=== PATIENT | female | born 1935 | race Caucasian/White ===

== ENCOUNTER 2016-10-30 21:13 | Emergency (ER) | payer MEDICARE, OTHER ==
[2016-10-30 21:47] VITALS: TEMP 98.3
[2016-10-30] MEDS ORDERED: LABETALOL SYRINGE 5 MG/ML IVP STA (21:58)
[2016-10-30] MEDS ORDERED: SODIUM CHLORIDE 0.9% 1,000 ML IV STA (21:58)
--- NOTE | 2016-10-30 21:58 | ED ---
General Adult HPI - General Chief complaint: Headache Stated complaint: Headache - BP Check Time Seen by Provider: 10/30/16 21:48 Source: patient, family, RN notes reviewed, old records reviewed Mode of arrival: wheelchair Limitations: no limitations - History of Present Illness Initial comments: This is an 78-year-old female ER for evaluation. This patient presents to ER for evaluation of headache and elevated blood pressure. Patient was recently placed on Xarelto for PE and she was in the hospital about a month ago. Prolonged hospitalization, patient did have a fall 2 days ago she hit her head. Patient is taking all medications as prescribed, does take pain medication at night for back pain. Patient does have history of lung cancer - Related Data Home Medications Medication Instructions Recorded Confirmed DULoxetine HCL [Cymbalta] 30 mg PO AC-SUPPER 06/19/16 10/30/16 HYDROcodone/APAP 10-325MG [[place] 1 tab PO QID PRN 06/19/16 10/30/16 10-325] Letrozole 2.5 mg PO AC-SUPPER 06/19/16 10/30/16 Levothyroxine Sodium [Synthroid] 75 mcg PO AC-BRKFST 06/19/16 10/30/16 Losartan [Cozaar] 25 mg PO PC-BRKFST 06/19/16 10/30/16 Potassium Chloride [K-Tab ER] 10 meq PO PC-BRKFST 06/19/16 10/30/16 Rivaroxaban [Xarelto] 15 mg PO DAILY 10/30/16 10/30/16 Previous Rx's Medication Instructions Recorded Polyethylene Glycol 3350 [Miralax] 17 gm PO DAILY powd.pack 08/29/16 Allergies Allergy/AdvReac Type Severity Reaction Status Date / Time No Known Allergies Allergy Verified 10/30/16 22:56 Review of Systems ROS Statement: Those systems with pertinent positive or pertinent negative responses have been documented in the HPI. ROS Other: All systems not noted in ROS Statement are negative. Past Medical History Past Medical History: Cancer, Hypertension, Thyroid Disorder Additional Past Medical History / Comment(s): breast cancer with mets to bone. radiation done 3mths ago. pt refused chemo History of Any Multi-Drug Resistant Organisms: None Reported Past Surgical History: Hysterectomy, Orthopedic Surgery Additional Past Surgical History / Comment(s): Pins in L hip secondary to fracture Past Anesthesia/Blood Transfusion Reactions: No Reported Reaction Past Psychological History: No Psychological Hx Reported Smoking Status: Never smoker Past Alcohol Use History: None Reported Past Drug Use History: None Reported - Past Family History Father Family Medical History: No Reported History Mother Family Medical History: CVA/TIA Brother(s) Family Medical History: Coronary Artery Disease (CAD) Sister(s) Family Medical History: CVA/TIA Daughter(s) Family Medical History: No Reported History Son(s) Family Medical History: No Reported History General Exam Limitations: no limitations General appearance: alert, in no apparent distress, anxious Head exam: Present: atraumatic, normocephalic, normal inspection Eye exam: Present: normal appearance, PERRL, EOMI. Absent: scleral icterus, conjunctival injection, periorbital swelling ENT exam: Present: normal exam, mucous membranes moist Neck exam: Present: normal inspection. Absent: tenderness, meningismus, lymphadenopathy Respiratory exam: Present: normal lung sounds bilaterally. Absent: respiratory distress, wheezes, rales, rhonchi, stridor Cardiovascular Exam: Present: normal rhythm, tachycardia, normal heart sounds. Absent: systolic murmur, diastolic murmur, rubs, gallop, clicks GI/Abdominal exam: Present: soft, normal bowel sounds. Absent: distended, tenderness, guarding, rebound, rigid Extremities exam: Present: normal inspection, full ROM, normal capillary refill. Absent: tenderness, pedal edema, joint swelling, calf tenderness Back exam: Present: normal inspection Neurological exam: Present: alert, oriented X3, CN II-XII intact Psychiatric exam: Present: normal affect, normal mood Skin exam: Present: warm, dry, intact, normal color. Absent: rash Course Vital Signs 10/30/16 10/30/16 21:44 22:36 Temperature 98.3 F Pulse Rate 118 H 98 Respiratory 22 20 Rate Blood Pressure 205/96 205/98 O2 Sat by Pulse 98 100 Oximetry - Reevaluation(s) Reevaluation #1: 10/30/16 22:41 Patient does show improvement in blood pressure and pain control Reevaluation #2: 10/30/16 23:44 Patient's blood pressures improving, no acute distress EKG Findings - EKG Comments: EKG Findings:: EKG shows sinus tachycardia rate 101, DE 182, QRS 66, QTC 435 Medical Decision Making - Medical Decision Making A 1 female ER with headache and elevated blood pressure, blood pressures control medication emergency room, CT is negative and patient can be discharged home, no neurological deficit able to ambulate without it - Lab Data Result diagrams: 10/30/16 22:07 10/30/16 22:07 Lab Results 10/30/16 10/30/16 10/30/16 Range/Units 22:07 22:07 22:07 WBC 5.0 (3.8-10.6) k/uL RBC 3.41 L (3.80-5.40) m/uL Hgb 11.9 (11.4-16.0) gm/dL Hct 37.5 (34.0-46.0) % MCV 109.8 H (80.0-100.0) fL MCH 35.0 (25.0-35.0) pg MCHC 31.8 (31.0-37.0) g/dL RDW 13.8 (11.5-15.5) % Plt Count 312 (150-450) k/uL Neutrophils % 64 % Lymphocytes % 24 % Monocytes % 7 % Eosinophils % 3 % Basophils % 0 % Neutrophils # 3.2 (1.3-7.7) k/uL Lymphocytes # 1.2 (1.0-4.8) k/uL Monocytes # 0.3 (0-1.0) k/uL Eosinophils # 0.1 (0-0.7) k/uL Basophils # 0.0 (0-0.2) k/uL Large Platelets Present Polychromasia Present Macrocytosis Marked PT (9.0-12.0) sec INR (<1.1) APTT (22.0-30.0) sec Sodium 134 L (137-145) mmol/L Potassium 4.6 (3.5-5.1) mmol/L Chloride 102 (98-107) mmol/L Carbon Dioxide 22 (22-30) mmol/L Anion Gap 10 mmol/L BUN 15 (7-17) mg/dL Creatinine 1.14 H (0.52-1.04) mg/dL Est GFR (MDRD) Af Amer 55 (>60 ml/min/1.73 sqM) Est GFR (MDRD) Non-Af 46 (>60 ml/min/1.73 sqM) Glucose 111 H (74-99) mg/dL Calcium 9.3 (8.4-10.2) mg/dL Phosphorus 4.1 (2.5-4.5) mg/dL Magnesium 2.1 (1.6-2.3) mg/dL Total Bilirubin 0.7 (0.2-1.3) mg/dL AST 91 H (14-36) U/L ALT 62 H (9-52) U/L Alkaline Phosphatase 131 H (38-126) U/L Total Creatine Kinase 75 (30-135) U/L CK-MB (CK-2) 0.9 (0.0-2.4) ng/mL CK-MB (CK-2) Rel Index 1.2 Troponin I <0.012 (0.000-0.034) ng/mL Total Protein 6.4 (6.3-8.2) g/dL Albumin 3.7 (3.5-5.0) g/dL TSH 2.790 (0.465-4.680) mIU/L Urine Color Urine Appearance (Clear) Urine pH (5.0-8.0) Ur Specific [place] (1.001-1.035) Urine Protein (Negative) Urine Glucose (UA) (Negative) Urine Ketones (Negative) Urine Blood (Negative) Urine Nitrate (Negative) Urine Bilirubin (Negative) Urine Urobilinogen (<2.0) mg/dL Ur Leukocyte Esterase (Negative) Urine WBC (0-5) /hpf Hyaline Casts (0-2) /lpf 10/30/16 10/30/16 Range/Units 22:07 23:18 WBC (3.8-10.6) k/uL RBC (3.80-5.40) m/uL Hgb (11.4-16.0) gm/dL Hct (34.0-46.0) % MCV (80.0-100.0) fL MCH (25.0-35.0) pg MCHC (31.0-37.0) g/dL RDW (11.5-15.5) % Plt Count (150-450) k/uL Neutrophils % % Lymphocytes % % Monocytes % % Eosinophils % % Basophils % % Neutrophils # (1.3-7.7) k/uL Lymphocytes # (1.0-4.8) k/uL Monocytes # (0-1.0) k/uL Eosinophils # (0-0.7) k/uL Basophils # (0-0.2) k/uL Large Platelets Polychromasia Macrocytosis PT 16.2 H (9.0-12.0) sec INR 1.7 (<1.1) APTT 34.0 H (22.0-30.0) sec Sodium (137-145) mmol/L Potassium (3.5-5.1) mmol/L Chloride (98-107) mmol/L Carbon Dioxide (22-30) mmol/L Anion Gap mmol/L BUN (7-17) mg/dL Creatinine (0.52-1.04) mg/dL Est GFR (MDRD) Af Amer (>60 ml/min/1.73 sqM) Est GFR (MDRD) Non-Af (>60 ml/min/1.73 sqM) Glucose (74-99) mg/dL Calcium (8.4-10.2) mg/dL Phosphorus (2.5-4.5) mg/dL Magnesium (1.6-2.3) mg/dL Total Bilirubin (0.2-1.3) mg/dL AST (14-36) U/L ALT (9-52) U/L Alkaline Phosphatase (38-126) U/L Total Creatine Kinase (30-135) U/L CK-MB (CK-2) (0.0-2.4) ng/mL CK-MB (CK-2) Rel Index Troponin I (0.000-0.034) ng/mL Total Protein (6.3-8.2) g/dL Albumin (3.5-5.0) g/dL TSH (0.465-4.680) mIU/L Urine Color Light Yellow Urine Appearance Clear (Clear) Urine pH 6.5 (5.0-8.0) Ur Specific [place] 1.004 (1.001-1.035) Urine Protein Negative (Negative) Urine Glucose (UA) Negative (Negative) Urine Ketones Negative (Negative) Urine Blood Negative (Negative) Urine Nitrate Negative (Negative) Urine Bilirubin Negative (Negative) Urine Urobilinogen <2.0 (<2.0) mg/dL Ur Leukocyte Esterase Small H (Negative) Urine WBC 8 H (0-5) /hpf Hyaline Casts 1 (0-2) /lpf - Radiology Data Radiology results: report reviewed (CT brain is negative for acute disease), image reviewed Disposition Clinical Impression: Hypertension, Headache Disposition: HOME SELF-CARE Condition: Good Instructions: Acute Headache (ED), Hypertension (ED) Referrals: Jacob Young MD [Primary Care Provider] - 1-2 days
[2016-10-30] MEDS ORDERED: MORPHINE SULFATE 4 MG/ML SYRINGE IVP STA (22:16)
[2016-10-30 22:25] LABS: Basophils % (A) 0 %; CH 35.8; CHCM 32.8; Eosinophils # (A) 0.1 k/uL (0-0.7); Eosinophils % (A) 3 %; HCT 37.5 % (34.0-46.0); HGB 11.9 gm/dL (11.4-16.0); Luc # (Auto) 0.12; Luc % (Auto) 3; Lymphocytes # (A) 1.2 k/uL (1.0-4.8); Lymphocytes % (A) 24 %; MCHC 31.8 g/dL (31.0-37.0); MCV 109.8 fL (80.0-100.0); Macrocytosis Marked; Mean Platelet Volume 6.8; Monocytes # (A) 0.3 k/uL (0-1.0); Monocytes % (A) 7 %; Neutrophils # (A) 3.2 k/uL (1.3-7.7); Neutrophils % (A) 64 %; RBC 3.41 m/uL (3.80-5.40); RDW 13.8 % (11.5-15.5); WBC (Perox) 5.23
[2016-10-30 22:36] LABS: INR 1.7 (<1.1); Prothrombin Time 16.2 sec (9.0-12.0)
[2016-10-30 22:38] LABS: Calcium 9.3 mg/dL (8.4-10.2); Magnesium 2.1 mg/dL (1.6-2.3); Phosphorous 4.1 mg/dL (2.5-4.5); Potassium 4.6 mmol/L (3.5-5.1); Total Bilirubin 0.7 mg/dL (0.2-1.3); Total Protein 6.4 g/dL (6.3-8.2)
--- NOTE | 2016-10-30 22:44 | CT ---
EXAMINATION TYPE: CT brain wo con DATE OF EXAM: 10/30/2016 10:35 PM COMPARISON: 08/26/2016 HISTORY: Headache with elevated blood pressure. CT DLP: 950.80 mGycm Automated exposure control for dose reduction was used. FINDINGS: There is cerebral cortical atrophy. There is patchy hypodensity in the periventricular white matter. There is no mass effect nor midline shift. There is no sign of intracranial hemorrhage. Calvarium jose ears intact. IMPRESSION: Cerebral atrophy and chronic small vessel ischemia. No change compared to old exam.
[2016-10-30 22:46] LABS: Creatine Kinase 75 U/L (30-135)
[2016-10-30 22:54] LABS: Large Platelets Present; Polychromasia Present
[2016-10-30 22:59] LABS: Creatine Kinase MB 0.9 ng/mL (0.0-2.4); Troponin I <0.012 ng/mL (0.000-0.034)
[2016-10-30] MEDS ORDERED: HYDROcodone/APAP 10-325MG 1 EACH TAB PO ONE (23:02)
[2016-10-30 23:39] LABS: Appearance,Urine Clear (Clear); Bilirubin,Urine Negative (Negative); Glucose,Urine (UA) Negative (Negative); Ketones,Urine Negative (Negative); Leukocyte Esterase,Urine Small (Negative); Nitrite,Urine Negative (Negative); PH, Urine 6.5 (5.0-8.0); Particle Count 451; Protein,Urine Negative (Negative); Specific Gravity,Urine 1.004 (1.001-1.035); UA Billing (MACRO vs. MICRO) MICRO; Urobilinogen,Urine <2.0 mg/dL (<2.0); WBC,Urine 8 /hpf (0-5)
[2016-10-30] MEDS ORDERED: hydrALAZINE HCL 20 MG/ML 1 ML VIAL IVP STA (23:45)
[2016-10-30 23:50] VITALS: RESP 18
[2016-10-30 23:59] VITALS: BP 156/70; PULSE 76
== END 2016-10-31 | disposition home or self-care (01) ==
LOC: EC 21:13
DX: I10 Essential (primary) hypertension (principal); R51 Headache; E07.9 Disorder of thyroid, unspecified; Z91.81 History of falling; Z79.01 Long term (current) use of anticoagulants; Z79.899 Other long term (current) drug therapy; Z85.3 Personal history of malignant neoplasm of breast; Z85.118 Personal history of other malignant neoplasm of bronchus and lung; Z86.711 Personal history of pulmonary embolism; Z85.830 Personal history of malignant neoplasm of bone; Z92.3 Personal history of irradiation
CPT/HCPCS: 99284; 96374; 96375; 96361; 36415; 93005; 80053; 82550; 82553; 83735; 84100; 84443; 84484; 85025; 85610; 85730; 81001; 87086; 70450; J0360

== ENCOUNTER 2017-01-04 08:01 | Inpatient (IN) | payer MEDICARE, OTHER ==
--- NOTE | 2017-01-04 09:04 | ED ---
General Adult HPI - General Chief complaint: Shortness of Breath Stated complaint: ANDREZ, [place] PATIENT Time Seen by Provider: 01/04/17 08:20 Source: patient, family, RN notes reviewed, old records reviewed Mode of arrival: wheelchair Limitations: no limitations - History of Present Illness Initial comments: This is a 81-year-old female the ER for evaluation. This patient comes in for evaluation of a few different complaints, anorexia weight loss, chest and back pain, dehydration. Patient is sore from breast cancer possible lung metastasis possible bone metastasis. Patient also is complaining of increased shortness of breath has known positive PE. Patient is taking anticoagulation as directed. She does not have severe exertional dyspnea, she feels better when she is up and moving. Strength is continuing to diminish, and increased weakness - Related Data Home Medications Medication Instructions Recorded Confirmed DULoxetine HCL [Cymbalta] 30 mg PO AC-SUPPER 06/19/16 01/04/17 HYDROcodone/APAP 10-325MG [[place] 1 tab PO QID PRN 06/19/16 01/04/17 10-325] Letrozole 2.5 mg PO AC-SUPPER 06/19/16 01/04/17 Levothyroxine Sodium [Synthroid] 75 mcg PO AC-BRKFST 06/19/16 01/04/17 Losartan [Cozaar] 25 mg PO PC-BRKFST 06/19/16 01/04/17 Potassium Chloride [K-Tab ER] 10 meq PO PC-BRKFST 06/19/16 01/04/17 Levothyroxine Sodium [Synthroid] 37.5 mcg PO TUSA 01/04/17 01/04/17 Rivaroxaban [Xarelto] 20 mg PO DAILY 01/04/17 01/04/17 Allergies Allergy/AdvReac Type Severity Reaction Status Date / Time No Known Allergies Allergy Verified 01/04/17 10:08 Review of Systems ROS Statement: Those systems with pertinent positive or pertinent negative responses have been documented in the HPI. ROS Other: All systems not noted in ROS Statement are negative. Past Medical History Past Medical History: Cancer, Hypertension, Thyroid Disorder Additional Past Medical History / Comment(s): breast cancer with mets to bone. radiation done 3mths ago. pt refused chemo History of Any Multi-Drug Resistant Organisms: None Reported Past Surgical History: Hysterectomy, Orthopedic Surgery Additional Past Surgical History / Comment(s): Pins in L hip secondary to fracture Past Anesthesia/Blood Transfusion Reactions: No Reported Reaction Past Psychological History: No Psychological Hx Reported Smoking Status: Never smoker Past Alcohol Use History: None Reported Past Drug Use History: None Reported - Past Family History Father Family Medical History: No Reported History Mother Family Medical History: CVA/TIA Brother(s) Family Medical History: Coronary Artery Disease (CAD) Sister(s) Family Medical History: CVA/TIA Daughter(s) Family Medical History: No Reported History Son(s) Family Medical History: No Reported History General Exam Limitations: no limitations General appearance: alert, in no apparent distress Head exam: Present: atraumatic, normocephalic, normal inspection Eye exam: Present: normal appearance, PERRL, EOMI. Absent: scleral icterus, conjunctival injection, periorbital swelling ENT exam: Present: normal exam, mucous membranes moist Neck exam: Present: normal inspection. Absent: tenderness, meningismus, lymphadenopathy Respiratory exam: Present: normal lung sounds bilaterally, respiratory distress , wheezes, accessory muscle use, decreased breath sounds, prolonged expiratory. Absent: rales, rhonchi, stridor Cardiovascular Exam: Present: normal rhythm, tachycardia, normal heart sounds. Absent: systolic murmur, diastolic murmur, rubs, gallop, clicks GI/Abdominal exam: Present: soft, normal bowel sounds. Absent: distended, tenderness, guarding, rebound, rigid Extremities exam: Present: normal inspection, full ROM, normal capillary refill. Absent: tenderness, pedal edema, joint swelling, calf tenderness Back exam: Present: normal inspection Neurological exam: Present: alert, oriented X3, CN II-XII intact Psychiatric exam: Present: normal affect, normal mood Skin exam: Present: warm, dry, intact, normal color. Absent: rash Course Vital Signs 01/04/17 01/04/17 01/04/17 08:17 09:16 11:10 Temperature 97.6 F Pulse Rate 115 H 93 95 Respiratory 22 20 18 Rate Blood Pressure 111/55 163/80 150/70 O2 Sat by Pulse 92 L 97 97 Oximetry 01/04/17 12:06 Temperature Pulse Rate 97 Respiratory 17 Rate Blood Pressure 142/98 O2 Sat by Pulse 97 Oximetry - Reevaluation(s) Reevaluation #1: 01/04/17 12:31 Patient does feel better with IV fluid, still feels weak and is still without appetite, and an attempt to stand patient still was very weak and uneasy on her feet EKG Findings - EKG Comments: EKG Findings:: EKG shows normal sinus rhythm rate of 91, PA 170, QRS 68, QTC 447 Medical Decision Making - Medical Decision Making 81 female in the ER for evaluation of weakness, dehydration, hyponatremia, cirrhosis chronic, mild ascites. Also anorexia and weight loss. Patient be admitted for further evaluation and treatment - Lab Data Result diagrams: 01/04/17 09:00 01/04/17 09:00 Lab Results 01/04/17 01/04/17 01/04/17 Range/Units 09:00 09:00 09:00 WBC 7.8 (3.8-10.6) k/uL RBC 3.41 L (3.80-5.40) m/uL Hgb 11.9 (11.4-16.0) gm/dL Hct 37.2 (34.0-46.0) % MCV 109.2 H (80.0-100.0) fL MCH 34.9 (25.0-35.0) pg MCHC 31.9 (31.0-37.0) g/dL RDW 15.6 H (11.5-15.5) % Plt Count 113 L D (150-450) k/uL Neutrophils % 76 % Lymphocytes % 13 % Monocytes % 7 % Eosinophils % 3 % Basophils % 0 % Neutrophils # 5.9 (1.3-7.7) k/uL Lymphocytes # 1.0 (1.0-4.8) k/uL Monocytes # 0.5 (0-1.0) k/uL Eosinophils # 0.2 (0-0.7) k/uL Basophils # 0.0 (0-0.2) k/uL Manual Slide Review Performed Polychromasia Present Hypochromasia Slight Poikilocytosis (manual Present Macrocytosis Marked Target Cells Present PT (9.0-12.0) sec INR (<1.1) APTT (22.0-30.0) sec Sodium 128 L (137-145) mmol/L Potassium 4.8 (3.5-5.1) mmol/L Chloride 98 (98-107) mmol/L Carbon Dioxide 20 L (22-30) mmol/L Anion Gap 10 mmol/L BUN 14 (7-17) mg/dL Creatinine 1.00 (0.52-1.04) mg/dL Est GFR (MDRD) Af Amer >60 (>60 ml/min/1.73 sqM) Est GFR (MDRD) Non-Af 53 (>60 ml/min/1.73 sqM) Glucose 86 (74-99) mg/dL Calcium 8.6 (8.4-10.2) mg/dL Phosphorus 3.9 (2.5-4.5) mg/dL Magnesium 1.7 (1.6-2.3) mg/dL Total Bilirubin 3.0 H (0.2-1.3) mg/dL AST 143 H (14-36) U/L ALT 45 (9-52) U/L Alkaline Phosphatase 185 H (38-126) U/L Total Creatine Kinase 105 (30-135) U/L CK-MB (CK-2) 1.6 (0.0-2.4) ng/mL CK-MB (CK-2) Rel Index 1.5 Troponin I 0.026 (0.000-0.034) ng/mL Total Protein 5.4 L (6.3-8.2) g/dL Albumin 2.6 L (3.5-5.0) g/dL Lipase (23-300) U/L TSH (0.465-4.680) mIU/L Urine Color Urine Appearance (Clear) Urine pH (5.0-8.0) Ur Specific [place] (1.001-1.035) Urine Protein (Negative) Urine Glucose (UA) (Negative) Urine Ketones (Negative) Urine Blood (Negative) Urine Nitrite (Negative) Urine Bilirubin (Negative) Urine Urobilinogen (<2.0) mg/dL Ur Leukocyte Esterase (Negative) Urine RBC (0-5) /hpf Urine WBC (0-5) /hpf Urine WBC Clumps (None) /hpf Ur Squamous Epith Cells (0-4) /hpf Urine Bacteria (None) /hpf Urine Mucus (None) /hpf 01/04/17 01/04/17 01/04/17 Range/Units 09:00 09:00 11:15 WBC (3.8-10.6) k/uL RBC (3.80-5.40) m/uL Hgb (11.4-16.0) gm/dL Hct (34.0-46.0) % MCV (80.0-100.0) fL MCH (25.0-35.0) pg MCHC (31.0-37.0) g/dL RDW (11.5-15.5) % Plt Count (150-450) k/uL Neutrophils % % Lymphocytes % % Monocytes % % Eosinophils % % Basophils % % Neutrophils # (1.3-7.7) k/uL Lymphocytes # (1.0-4.8) k/uL Monocytes # (0-1.0) k/uL Eosinophils # (0-0.7) k/uL Basophils # (0-0.2) k/uL Manual Slide Review Polychromasia Hypochromasia Poikilocytosis (manual Macrocytosis Target Cells PT 16.6 H (9.0-12.0) sec INR 1.7 (<1.1) APTT 34.2 H (22.0-30.0) sec Sodium (137-145) mmol/L Potassium (3.5-5.1) mmol/L Chloride (98-107) mmol/L Carbon Dioxide (22-30) mmol/L Anion Gap mmol/L BUN (7-17) mg/dL Creatinine (0.52-1.04) mg/dL Est GFR (MDRD) Af Amer (>60 ml/min/1.73 sqM) Est GFR (MDRD) Non-Af (>60 ml/min/1.73 sqM) Glucose (74-99) mg/dL Calcium (8.4-10.2) mg/dL Phosphorus (2.5-4.5) mg/dL Magnesium (1.6-2.3) mg/dL Total Bilirubin (0.2-1.3) mg/dL AST (14-36) U/L ALT (9-52) U/L Alkaline Phosphatase (38-126) U/L Total Creatine Kinase (30-135) U/L CK-MB (CK-2) (0.0-2.4) ng/mL CK-MB (CK-2) Rel Index Troponin I (0.000-0.034) ng/mL Total Protein (6.3-8.2) g/dL Albumin (3.5-5.0) g/dL Lipase 41 (23-300) U/L TSH 1.540 (0.465-4.680) mIU/L Urine Color Yellow Urine Appearance Cloudy H (Clear) Urine pH 5.5 (5.0-8.0) Ur Specific [place] 1.006 (1.001-1.035) Urine Protein Trace H (Negative) Urine Glucose (UA) Negative (Negative) Urine Ketones Negative (Negative) Urine Blood Moderate H (Negative) Urine Nitrite Negative (Negative) Urine Bilirubin Negative (Negative) Urine Urobilinogen <2.0 (<2.0) mg/dL Ur Leukocyte Esterase Large H (Negative) Urine RBC 35 H (0-5) /hpf Urine WBC 82 H (0-5) /hpf Urine WBC Clumps Moderate H (None) /hpf Ur Squamous Epith Cells <1 (0-4) /hpf Urine Bacteria Rare H (None) /hpf Urine Mucus Rare H (None) /hpf - Radiology Data Radiology results: report reviewed (Chest x-ray abdominal x-ray negative for acute disease, accident ultrasound of gallbladder is negative for acute cholecystitis, positive ascites), image reviewed Disposition Clinical Impression: Weakness, Hyponatremia, Dehydration Disposition: ADMITTED IP TO THIS HOSP Condition: Fair Referrals: Jacob Young MD [Primary Care Provider] - 1-2 days
[2017-01-04] MEDS ORDERED: MORPHINE SULFATE 4 MG/ML SYRINGE IVP STA (09:16)
[2017-01-04 09:28] LABS: Basophils % (A) 0 %; CH 34.2; CHCM 31.6; Eosinophils # (A) 0.2 k/uL (0-0.7); Eosinophils % (A) 3 %; HCT 37.2 % (34.0-46.0); HDW 2.66; HGB 11.9 gm/dL (11.4-16.0); Hypochromasia Slight; Luc # (Auto) 0.13; Luc % (Auto) 2; Lymphocytes % (A) 13 %; MCH 34.9 pg (25.0-35.0); MCHC 31.9 g/dL (31.0-37.0); MCV 109.2 fL (80.0-100.0); Macrocytosis Marked; Mean Platelet Volume 7.4; Monocytes # (A) 0.5 k/uL (0-1.0); Monocytes % (A) 7 %; Neutrophils # (A) 5.9 k/uL (1.3-7.7); Neutrophils % (A) 76 %; RBC 3.41 m/uL (3.80-5.40); RDW 15.6 % (11.5-15.5); WBC 7.8 k/uL (3.8-10.6); WBC (Perox) 8.15
[2017-01-04 09:29] LABS: INR 1.7 (<1.1); Partial Thromboplastin Time 34.2 sec (22.0-30.0); Prothrombin Time 16.6 sec (9.0-12.0)
[2017-01-04 09:33] LABS: ALT 45 U/L (9-52); AST 143 U/L (14-36); Alkaline Phosphatase 185 U/L (38-126); Anion Gap 10 mmol/L; Blood Urea Nitrogen 14 mg/dL (7-17); Calcium 8.6 mg/dL (8.4-10.2); Carbon Dioxide 20 mmol/L (22-30); Chloride 98 mmol/L (98-107); Glucose 86 mg/dL (74-99); Magnesium 1.7 mg/dL (1.6-2.3); Non-African American GFR(MDRD) 53 (>60 ml/min/1.73 sqM); Phosphorous 3.9 mg/dL (2.5-4.5); Potassium 4.8 mmol/L (3.5-5.1); Sodium 128 mmol/L (137-145); Total Protein 5.4 g/dL (6.3-8.2)
--- NOTE | 2017-01-04 09:39 | XR ---
EXAMINATION TYPE: XR chest 2V DATE OF EXAM: 01/04/2017 9:35 AM COMPARISON: Prior chest x-ray August HISTORY: Difficulty breathing, weakness TECHNIQUE: Frontal and lateral views of the chest are obtained. FINDINGS: Similar findings to prior exam. There are overlying cardiac leads and the patient is rotat ed. Heart is enlarged. No evident pneumothorax or pleural effusion. Multiple old right-sided rib frac tures are noted. Interstitium mildly increased. Lung volumes are low. Central vascularity and lizzette no t significantly changed. Multiple compression deformities present within the visualized spine. Increa sed AP diameter of the chest could be indicative of underlying COPD. IMPRESSION: Cardiomegaly. Difficult to exclude a component of volume overload versus interstitial juan antonio ng disease, pulmonary venous hypertension and interstitial edema. Additional findings above. Follow-u p recommended.
[2017-01-04 09:40] LABS: Manual Review Performed; Polychromasia Present; Target Cells Present
[2017-01-04 09:50] LABS: Creatine Kinase MB 1.6 ng/mL (0.0-2.4); Troponin I 0.026 ng/mL (0.000-0.034)
--- NOTE | 2017-01-04 10:02 | XR ---
Abdomen HISTORY: Difficulty breathing, metastatic disease and pain, weakness Frontal view of the abdomen submitted on 3 images. No comparisons There are overlying cardiac leads. Heart size appears borderline increased. Old rib fractures show ca llus formation compatible with fracture healing. No bowel obstruction or pneumoperitoneum is evident. Scoliotic curvature noted at the lumbar spine. Bone mineralization is reduced, there are some sclero tic areas present. Postop change noted to the left hip. There are vascular calcifications noted. Scle rotic density present at the left ilium is suspicious. Question expansile appearance of the inferior pubic ramus on the right as compared to left. IMPRESSION: Bony metastatic disease. Nonobstructive bowel gas pattern
[2017-01-04] MEDS ORDERED: SODIUM CHLORIDE 0.9% 500 ML IV STA (10:14)
[2017-01-04] MEDS ORDERED: SODIUM CHLORIDE 0.9% 1,000 ML IV STA ×3 (10:14→12:29)
[2017-01-04 11:43] LABS: Appearance,Urine Cloudy (Clear); Bacteria,Urine Rare /hpf; Bilirubin,Urine Negative (Negative); Glucose,Urine (UA) Negative (Negative); Ketones,Urine Negative (Negative); Leukocyte Esterase,Urine Large (Negative); Mucus,Urine Rare /hpf; Nitrite,Urine Negative (Negative); PH, Urine 5.5 (5.0-8.0); Particle Count 4799; Protein,Urine Trace (Negative); RBC,Urine 35 /hpf (0-5); Specific Gravity,Urine 1.006 (1.001-1.035); Squamous Epithelial Cell,Urine <1 /hpf (0-4); UA Billing (MACRO vs. MICRO) MICRO; Urobilinogen,Urine <2.0 mg/dL (<2.0); WBC,Urine 82 /hpf (0-5)
--- NOTE | 2017-01-04 12:03 | US ---
EXAMINATION TYPE: US gallbladder DATE OF EXAM: 01/04/2017 11:06 AM COMPARISON: CT chest on PACS CLINICAL HISTORY: Pain. EC patient with HX of Breast CA, osteoarthritis, back pain EXAM MEASUREMENTS: Liver Length: 12.8cm Gallbladder Wall: 0.5cm CBD: 0.4 cm Right Kidney: 5.6 x 3.2 x 2.8 cm Pancreas: limitedly seen due to overlying bowel gas Liver: heterogeneous appearance with lobular borders and surrounded by ascites Gallbladder: abnormally thickened wall and mild amount of echogenic bile in neck Evidence for sonographic Vora's sign: No CBD: wnl but is limitedly seen due to liver being compressed by ascites Right Kidney: small for size, cortical medullary differentiation is decreased, there is increased co rtical echogenicity Ascites is noted in all four abdominal/pelvic quadrants with largest in RUQ at 8.6cm A/P in supine po sition. IMPRESSION: Correlate for cirrhosis with ascites. Medical renal disease.
[2017-01-04] MEDS ORDERED: MORPHINE SULFATE 4 MG/ML SYRINGE IVP PRN (12:29)
[2017-01-04] MEDS ORDERED: ONDANSETRON 4 MG/2 ML VIAL IVP PRN (12:29)
[2017-01-04] MEDS ORDERED: PANTOPRAZOLE 40 MG/10 ML VIAL IVP STA (12:29)
[2017-01-04] MEDS ORDERED: ONDANSETRON 4 MG/2 ML VIAL IVP STA (12:29)
[2017-01-04 14:03] VITALS: BMI 20.6
[2017-01-04] MEDS: DULoxetine HCL 30 MG CAPSULE.DR PO SCH (17:24)
[2017-01-04] MEDS: LETROZOLE 2.5 MG TAB PO SCH (17:24)
[2017-01-05] MEDS: LEVOTHYROXINE 75 MCG TAB PO SCH (06:06)
[2017-01-05 07:54] LABS: CH 34.6; CHCM 31.7; HCT 35.9 % (34.0-46.0); HDW 2.85; HGB 11.4 gm/dL (11.4-16.0); Hypochromasia Slight; MCH 35.1 pg (25.0-35.0); MCHC 31.9 g/dL (31.0-37.0); Macrocytosis Marked; Mean Platelet Volume 7.3; RBC 3.26 m/uL (3.80-5.40); RDW 15.8 % (11.5-15.5); WBC 6.9 k/uL (3.8-10.6); WBC (Perox) 7.16
[2017-01-05 07:55] LABS: ALT 42 U/L (9-52); AST 140 U/L (14-36); Alkaline Phosphatase 163 U/L (38-126); Anion Gap 6 mmol/L; Blood Urea Nitrogen 14 mg/dL (7-17); Calcium 7.9 mg/dL (8.4-10.2); Carbon Dioxide 19 mmol/L (22-30); Chloride 105 mmol/L (98-107); Glucose 84 mg/dL (74-99); Non-African American GFR(MDRD) 56 (>60 ml/min/1.73 sqM); Potassium 4.2 mmol/L (3.5-5.1); Sodium 130 mmol/L (137-145); Total Bilirubin 2.1 mg/dL (0.2-1.3)
[2017-01-05] MEDS: LOSARTAN 25 MG TAB PO SCH (08:03)
[2017-01-05] MEDS: RIVAROXABAN 10 MG TAB PO SCH (08:03)
[2017-01-05] MEDS ORDERED: POTASSIUM CHLORIDE ER 10 MEQ TAB.ER.PRT PO SCH (08:30)
[2017-01-05 08:42] LABS: Add Differential Manual Differential
[2017-01-05 08:46] LABS: Metamyelocytes % 0.5 %; Nucleated Red Blood Cells 0 /100 WBC (0-0); Total Cells Counted 200
[2017-01-05 08:50] LABS: Polychromasia Present
[2017-01-05 08:51] LABS: Target Cells Present
[2017-01-05] MEDS ORDERED: PANTOPRAZOLE 40 MG/10 ML VIAL IVP SCH (09:00)
--- NOTE | 2017-01-05 09:46 | P.NPCON ---
History of Present Illness - Reason for Consult hyponatremia - History of Present Illness Reason for consultation: Hyponatremia History of present illness: Patient is a 81-year-old female seen in renal consultation for hyponatremia. Her sodium level was 128 on admission and is 1:30 this morning. 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 She presented to the hospital with dyspnea as well as altered mental status. She is currently awake and quite alert. States she was drinking quite a bit of fluids at home but not eating much. Currently she has breakfast sitting on the table and states she does not feel like eating. Admits to good urine output. No hematuria or dysuria. She is currently maintained on fluid restriction. No history of kidney disease. Her GFR is at baseline with creatinine near 1 today. Hemodynamically she is stable with no evidence of intravascular volume depletion. I also don't see any thiazide diuretics listed in her home medications. Does admit to use of Advil but hasn't taken it for the last 1 week. Vital signs are stable. General: The patient appeared well nourished and normally developed. HEENT: Head exam is unremarkable. Neck is without jugular venous distension. LUNGS: Lungs are clear to auscultation and percussion. Breath sounds decreased. HEART: Rate and Rhythm are regular. First and second heart sounds normal. No murmurs, rubs or gallops. ABDOMEN: Abdominal exam reveals normal bowel sounds. Non-tender and non- distended. No evidence of peritonitis. EXTREMITITES: No clubbing, cyanosis, or edema. Past Medical History Past Medical History: Cancer, Hypertension, Pulmonary Embolus (PE), Thyroid Disorder Additional Past Medical History / Comment(s): breast cancer with mets to bone. Radiation last summer History of Any Multi-Drug Resistant Organisms: None Reported Past Surgical History: Hysterectomy, Orthopedic Surgery Additional Past Surgical History / Comment(s): Pins in L hip secondary to fracture Past Anesthesia/Blood Transfusion Reactions: No Reported Reaction Past Psychological History: No Psychological Hx Reported Smoking Status: Never smoker Past Alcohol Use History: None Reported Past Drug Use History: None Reported - Past Family History Father Family Medical History: No Reported History Mother Family Medical History: CVA/TIA Brother(s) Family Medical History: Coronary Artery Disease (CAD) Sister(s) Family Medical History: CVA/TIA Daughter(s) Family Medical History: No Reported History Son(s) Family Medical History: No Reported History Medications and Allergies Home Medications Medication Instructions Recorded Confirmed Type DULoxetine HCL [Cymbalta] 30 mg PO AC-SUPPER 06/19/16 01/04/17 History HYDROcodone/APAP 10-325MG [[place] 1 tab PO QID PRN 06/19/16 01/04/17 History 10-325] Letrozole 2.5 mg PO AC-SUPPER 06/19/16 01/04/17 History Levothyroxine Sodium [Synthroid] 75 mcg PO SUMOWETHFR 06/19/16 01/04/17 History Losartan [Cozaar] 25 mg PO PC-BRKFST 06/19/16 01/04/17 History Potassium Chloride [K-Tab ER] 10 meq PO PC-BRKFST 06/19/16 01/04/17 History Levothyroxine Sodium [Synthroid] 37.5 mcg PO TUSA 01/04/17 01/04/17 History Rivaroxaban [Xarelto] 20 mg PO DAILY 01/04/17 01/04/17 History Allergies Allergy/AdvReac Type Severity Reaction Status Date / Time No Known Allergies Allergy Verified 01/04/17 10:08 Physical Exam Vitals: Vital Signs Temp Pulse Pulse Resp BP BP Pulse Ox 01/05/17 07:00 97.8 F 100 18 148/67 95 01/04/17 23:03 106 H 97 01/04/17 22:13 97.8 F 126 H 16 118/62 96 01/04/17 15:55 97.8 F 95 18 140/61 97 01/04/17 15:51 96 01/04/17 13:19 97.8 F 96 18 143/65 96 Intake and Output 01/04/17 01/05/17 01/05/17 22:59 06:59 14:59 Intake Total 590 100 Balance 590 100 Intake: Oral 590 100 Other: Voiding Method Toilet Toilet Toilet # Voids 1 2 Results - Lab Results Most recent lab results Calcium 7.9 mg/dL (8.4-10.2) L 01/05/17 07:04 Phosphorus 3.9 mg/dL (2.5-4.5) 01/04/17 09:00 Magnesium 1.7 mg/dL (1.6-2.3) 01/04/17 09:00 01/05/17 07:04 01/05/17 07:04 Assessment and Plan Plan: Assessment: #1. Hyponatremia. Euvolemic in nature. 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 Improving with fluid restriction. Sodium level 128 on admission and is 130 this morning. #2. Breast cancer with metastasis. #3. Atrophic right kidney. #4. Ascites. #5. Metabolic acidosis. This is likely due to intermittent diarrhea she's been having. Plan: Maintain 1.5 L fluid restriction. Encourage oral solute intake. Add ensure with meals. Check serum osmolality, urine osmolality, and urine sodium. Check renal ultrasound. Repeat electrolytes in the morning. Thank you for the consultation. I will continue to follow the patient with you during her hospital stay.
--- NOTE | 2017-01-05 11:08 | US ---
EXAMINATION TYPE: US kidneys/renal and bladder DATE OF EXAM: 01/05/2017 10:52 AM COMPARISON: Ultrasound abdomen 04 January 2017 CLINICAL HISTORY: lizabeth. LIZABETH EXAM MEASUREMENTS: Right Kidney: 6.1 x 2.9 x 3.4 cm Left Kidney: 7.7 x 3.8 x 4.1 cm Right Kidney: small for size Left Kidney: small for size, inferior pole limited by rib shadowing Bladder: wnl Bilateral Jets seen: no Ascites seen in all 4 quadrants Cortical medullary differentiation is reduced especially on the right, cortical echogenicity increase d on the right. There is no hydronephrosis. IMPRESSION: Findings suggest medical renal disease right kidney. Exam somewhat limited. Ascites.
[2017-01-05] MEDS ORDERED: IPRATROPIUM-ALBUTEROL 3 ML NEB INHALATION PRN (11:50)
[2017-01-05] MEDS: FUROSEMIDE 10 MG/ML 2 ML VIAL IV SCH (12:36)
[2017-01-05] MEDS: SPIRONOLACTONE 25 MG TAB PO SCH (12:36)
[2017-01-05] MEDS: IPRATROPIUM-ALBUTEROL 3 ML NEB INHALATION SCH ×3 (12:51→21:20)
--- NOTE | 2017-01-05 13:35 | P.HPIM ---
History of Present Illness H&P Date: 01/05/17 Chief Complaint: Change mental status, shortness of breath, UTI, hyponatremia, breast cancer 81-year-old female one of my office patient is seen Dr. Workman primary oncologist for breast cancer with metastasis was also had history of pulmonary embolism history of hypertension and hypothyroidism who apparently has become debilitated tired fatigue weakness not been able to ambulate and walk. Patient had an appointment in my office last week the family had canceled because patient was very tired week not been able to walk and to come in the car with her family. Her urine was analyzed to be negative for UTI. Patient continued to experience sign and symptom of UTI but developed over the last 48 hours worsening symptom with worsening shortness of breath cough wheezes worsening symptom when she lays down having more PND and orthopnea also has been having incontinence with frequency and urgency with sign and symptom consistent with UTI as well. Patient ended up having more sites more fluid overload ended up coming to the emergency department at [facility] where was seen and evaluated found to have ascites with significant abnormal liver function test. Her ultrasound of the liver came back with sign and symptom of cirrhosis along with Ascites with no no clear evidence base of mass in the liver area that more sign and symptoms consistent with cirrhosis. Review of Systems Constitutional: Reports anorexia, Reports chronic headaches, Reports fatigue, Reports fever, Reports lethargy, Reports malaise, Reports poor appetite, Reports sweats, Reports weakness, Denies as per HPI, Denies chills, Denies chronic pain, Denies daytime sleepiness, Denies night sweats, Denies weight gain , Denies weight loss Eyes: bilateral as per HPI Ears: bilateral: decreased hearing Ears, nose, mouth and throat: Reports as per HPI, Reports ant. neck pain, Reports nasal congestion, Reports nasal discharge, Reports sinus pain, Reports sinus pressure, Reports sore throat, Denies bleeding gums, Denies dental pain, Denies dysphagia, Denies epistaxis, Denies headache, Denies hoarseness, Denies mouth pain, Denies neck fullness/pressure, Denies neck lump, Denies nose pain, Denies odynophagia, Denies post-nasal drip, Denies swelling in mouth, Denies swelling in throat, Denies vertigo, Denies voice changes Cardiovascular: Reports decreased exercise tolerance, Reports dyspnea on exertion, Reports edema, Reports high blood pressure, Reports irregular heart beat, Reports leg edema, Reports lightheadedness, Reports orthopnea, Reports paroxysmal nocturnal dyspnea, Reports rapid heart beat, Reports shortness of breath, Denies as per HPI, Denies chest pain, Denies claudication, Denies palpitations, Denies phlebitis, Denies syncope Respiratory: Reports congestion, Reports cough, Reports dyspnea, Reports home oxygen, Reports pain on inspiration, Reports respiratory infections, Reports sleep apnea, Reports wheezing, Denies as per HPI, Denies cough with sputum, Denies excessive sputum, Denies hemoptysis, Denies pain, Denies pleurisy, Denies snoring Gastrointestinal: Reports abdominal pain, Reports bloating, Reports BRBPR, Reports change in bowel habits, Reports constipation, Reports dyspepsia, Reports early satiety, Reports heartburn, Reports indigestion, Reports nausea, Denies as per HPI, Denies belching, Denies coffee ground emesis, Denies diarrhea , Denies excessive gas, Denies hematemesis, Denies hematochezia, Denies jaundice , Denies lactose intolerance, Denies loss of appetite, Denies melena, Denies vomiting Genitourinary: Reports nocturia, Reports urge incontinence, Reports urgency, Reports urinary frequency, Denies as per HPI, Denies abnormal vaginal bleeding, Denies decreased libido, Denies difficulty conceiving, Denies difficulty voiding , Denies dysmenorrhea, Denies dyspareunia, Denies dysuria, Denies flank pain, Denies genital sores, Denies hematuria, Denies hot flashes, Denies incomplete emptying, Denies kidney stones, Denies menorrhagia, Denies mixed incontinence, Denies pelvic pain, Denies post void dribbling, Denies , Denies prolapse symptoms, Denies stress incontinence, Denies vaginal discharge, Denies vaginal dryness, Denies vaginal itching, Denies vaginal odor Musculoskeletal: Reports frequent falls, Reports loss of height, Reports low back pain, Reports myalgias, Reports neck pain, Reports neck stiffness, Reports prior amputations, Denies as per HPI, Denies arm numbness/tingling, Denies atrophy, Denies fractures, Denies gait dysfunction, Denies hot joints, Denies leg numbness/tingling, Denies limitation of motion, Denies morning stiffness, Denies muscle cramps, Denies muscle weakness, Denies redness of joints, Denies shooting arm pain, Denies shooting leg pain Musculoskeletal: bilateral: ankle pain Integumentary: Reports depigmentation, Reports foot/leg ulcers, Reports rash, Reports sores, Reports striae, Denies as per HPI, Denies boils, Denies brittle nails, Denies change in hair/nails, Denies color changes, Denies darkening of skin, Denies dryness, Denies growths, Denies hirsutism, Denies lesions, Denies onychomycosis, Denies pruritus, Denies unusual bruising, Denies wounds Neurological: Reports ataxia, Reports gait dysfunction, Reports memory loss, Reports numbness, Reports paresthesias, Reports tic, Reports tingling, Reports tremors, Reports vertigo, Denies as per HPI, Denies aphasia, Denies balance difficulties, Denies burning pain, Denies change in mentation, Denies change in smell/taste, Denies change in speech, Denies confusion, Denies convulsions, Denies double vision, Denies head injury, Denies headaches, Denies hearing difficulties, Denies lack of coordination, Denies loss of vision, Denies migraines, Denies motor disturbance, Denies paralysis, Denies seizures, Denies sensory deficit, Denies spasticity, Denies syncope, Denies transient paralysis, Denies weakness, Denies visual changes Psychiatric: Reports anhedonia, Reports depression, Reports memory loss, Reports sadness/tearfulness, Denies as per HPI, Denies anxiety, Denies anxiety attacks, Denies change in appetite, Denies change in libido, Denies change in sleep habits, Denies confusion, Denies difficulty concentrating, Denies disorientation, Denies hallucinations, Denies hopelessness, Denies hypersomnia, Denies insomnia, Denies irritability, Denies mood swings, Denies paranoia, Denies sleep disturbances, Denies suicidal ideation Endocrine: Reports cold intolerance, Reports fatigue, Reports flushing, Reports heat intolerance, Reports nocturia, Reports polydipsia, Reports polyphagia, Denies as per HPI, Denies deepening of the voice, Denies excessive sweating, Denies excessive thirst, Denies high blood sugars, Denies increase in ring/shoe/ hat size, Denies low blood sugars, Denies palpitations, Denies polyuria, Denies proptosis, Denies recent glucocorticoid use, Denies thyroid mass, Denies weight change Hematologic/Lymphatic: Reports easy bruising, Denies as per HPI, Denies easy bleeding, Denies lymphadenopathy, Denies lymphedema, Denies thrombophilia Allergic/Immunologic: Reports allergic rhinitis, Reports gluten intolerance, Denies as per HPI, Denies anaphylaxis, Denies angioedema, Denies persistent infections, Denies seasonal allergies, Denies urticaria, Denies wheezing Past Medical History Past Medical History: Cancer, Hypertension, Pulmonary Embolus (PE), Thyroid Disorder Additional Past Medical History / Comment(s): breast cancer with mets to bone. Radiation last summer History of Any Multi-Drug Resistant Organisms: None Reported Past Surgical History: Hysterectomy, Orthopedic Surgery Additional Past Surgical History / Comment(s): Pins in L hip secondary to fracture Past Anesthesia/Blood Transfusion Reactions: No Reported Reaction Past Psychological History: No Psychological Hx Reported Smoking Status: Never smoker Past Alcohol Use History: None Reported Past Drug Use History: None Reported - Past Family History Father Family Medical History: No Reported History Mother Family Medical History: CVA/TIA Brother(s) Family Medical History: Coronary Artery Disease (CAD) Sister(s) Family Medical History: CVA/TIA Daughter(s) Family Medical History: No Reported History Son(s) Family Medical History: No Reported History Medications and Allergies Home Medications Medication Instructions Recorded Confirmed Type DULoxetine HCL [Cymbalta] 30 mg PO AC-SUPPER 06/19/16 01/04/17 History HYDROcodone/APAP 10-325MG [[place] 1 tab PO QID PRN 06/19/16 01/04/17 History 10-325] Letrozole 2.5 mg PO AC-SUPPER 06/19/16 01/04/17 History Levothyroxine Sodium [Synthroid] 75 mcg PO SUMOWETHFR 06/19/16 01/04/17 History Losartan [Cozaar] 25 mg PO PC-BRKFST 06/19/16 01/04/17 History Potassium Chloride [K-Tab ER] 10 meq PO PC-BRKFST 06/19/16 01/04/17 History Levothyroxine Sodium [Synthroid] 37.5 mcg PO TUSA 01/04/17 01/04/17 History Rivaroxaban [Xarelto] 20 mg PO DAILY 01/04/17 01/04/17 History Allergies Allergy/AdvReac Type Severity Reaction Status Date / Time No Known Allergies Allergy Verified 01/04/17 10:08 Physical Exam Vitals: Vital Signs Temp Pulse Resp BP Pulse Ox 01/05/17 07:00 97.8 F 100 18 148/67 95 01/04/17 23:03 106 H 97 01/04/17 22:13 97.8 F 126 H 16 118/62 96 01/04/17 15:55 97.8 F 95 18 140/61 97 01/04/17 15:51 96 Intake and Output 01/04/17 01/05/17 01/05/17 22:59 06:59 14:59 Intake Total 590 100 Balance 590 100 Intake: Oral 590 100 Other: Voiding Method Toilet Toilet Toilet # Voids 1 2 Weight 51.256 kg Patient Weight 01/06/17 06:59 Weight 51.256 kg - Constitutional General appearance: no average body habitus, cooperative, no disheveled, mild distress, no morbidly obese, no acute distress, no obese, no severe distress, thin - EENT Eyes: no abnormal pupil, anicteric sclerae, no disc margins sharp, no edentulous , no EOMI, PERRLA, no fundus normal, no photophobia, no dentition normal, no poor dentition, no ptosis, no scleral icterus, normal appearance ENT: hard of hearing, no hearing grossly normal, no NA/AT, normal oropharynx, no other, no pharyngeal erythema, thrush, tonsillar exudates, no tonsillar swelling Ears: bilateral: normal, bulging - Neck Neck: lymphadenopathy, normal ROM, no other, no rigidity, no stridor, no thyromegaly Carotids: bilateral: upstroke normal, upstroke delayed Thyroid: bilateral: normal size, enlarged - Respiratory Respiratory: bilateral: CTA, diminished, dullness, rales - Cardiovascular Rhythm: regular Heart sounds: normal: S1, S2 Abnormal Heart Sounds: systolic murmur, S3 Gallop - Gastrointestinal Large ascites with mild hepatomegaly. General gastrointestinal: no absent bowel sounds, no decreased bowel sounds, distended, hepatomegaly, no hyperactive bowel sounds, normal bowel sounds, no organomegaly, no rigid, no scaphoid, soft, no splenomegaly, tenderness, no umbilical hernia, no ventral hernia - Integumentary Integumentary: no calor, no cellulitis, no cyanotic, no decreased turgor, no flushed, jaundiced, normal, no normal turgor, pale, rash, no ulcer - Neurologic Neurologic: CNII-XII intact - Musculoskeletal Musculoskeletal: no gait normal, generalized weakness, strength equal bilaterally, no right sided weakness, no left sided weakness - Psychiatric Psychiatric: A&O x's 3, appropriate affect Results CBC & Chem 7: 01/05/17 07:04 01/05/17 07:04 Labs: Abnormal Lab Results - Last 24 Hours (Table) 01/05/17 01/05/17 01/05/17 Range/Units 07:04 07:04 07:04 RBC 3.26 L (3.80-5.40) m/uL MCV 110.0 H (80.0-100.0) fL MCH 35.1 H (25.0-35.0) pg RDW 15.8 H (11.5-15.5) % Plt Count 114 L (150-450) k/uL Sodium 130 L (137-145) mmol/L Carbon Dioxide 19 L (22-30) mmol/L Osmolality 269 L (280-301) mosm/kg Calcium 7.9 L (8.4-10.2) mg/dL Total Bilirubin 2.1 H (0.2-1.3) mg/dL AST 140 H (14-36) U/L Alkaline Phosphatase 163 H (38-126) U/L Total Protein 5.0 L (6.3-8.2) g/dL Albumin 2.3 L (3.5-5.0) g/dL Thrombosis Risk Factor Assmnt - DVT/VTE Prophylaxis DVT/VTE Prophylaxis: Pharmacologic Prophylaxis ordered, Mechanical Prophylaxis ordered - Choose All That Apply Any of the Below Risk Factors Present?: Yes Other Risk Factors: Yes Each Risk Factor Represents 3 Points: Age 75 years or older, Family history of DVT/PE Other congenital or acquired thrombophilia - If yes, enter type in comment: No Thrombosis Risk Factor Assessment Total Risk Factor Score: 6 Thrombosis Risk Factor Assessment Level: High Risk Assessment and Plan Plan: 1 Alter mental status: Most likely combination of hyponatremia, UTI, metabolic encephalopathy along with possible breast cancer with metastasis. 2 sepsis with UTI: Urine culture still pending, UA was positive patient be started on Rocephin 1 g daily for now. 3 cirrhosis and worsening ascites: Most likely from metastasis in the liver and or paratonia cannot be found so far with testing. If agreeable patient might require paracentesis for analysis of the ascites fluid for cancer cell. 4 severe hyponatremia: Patient had seen nephrology continue fluid restriction. 5 breast cancer with metastasis: Has been seen Dr. Workman we'll consult oncology continue current management and whether to look for metastasis in the peritoneum in the liver area to other testing to be discussed with oncology. 6 history of pulmonary embolism and coagulation: Patient remain on Xarelto 20 mg a day. 7 hypothyroidism: Continue on Synthroid 57.5 alternate with 75 mg every other day. 8 hypertension: Remain on losartan 25 mg a day. 9 depression: Has been on Cymbalta 30 mg a day. 10 mild wheezes and possible cardiac asthma specially with a situs patient will be on albuterol ipratropium nebulizer and diuretics for now. 11 GI prophylaxis: Patient will be on pantoprazole. 12 DVT prophylaxis: On Xarelto.
[2017-01-05] MEDS ORDERED: RX INFO: IV CONTRAST WAS GIVEN 1 EACH MISC MISCELLANE PRN (17:13)
--- NOTE | 2017-01-05 17:20 | P.CONS ---
History of Present Illness - Reason for Consult Consult date: 01/05/17 on femara for metastatic breast cancer Requesting physician: Thad Coffman - Chief Complaint ANDREZ - History of Present Illness Ms. Jiménez is a pleasant female pt Dr. Workman who presented with worsening back pain that started around October 2015. XRay of thoracic spine done on 11/27/2015 revealed compression fracture at T11, bone density done on revealed osteoporosis but because of persistent pain bone scan was done on 01/04/2016 which revealed diffuse abnormal uptake through out her vertebral column, CT chest 02/27/2016 revealed diffuse osseous metastasis with mixed lytic and sclerotic lesions involving the spine and bilateral ribs and scattered suspicious liver lesions, the largest was 2.2cm near the dome of the liver, incidentally there was diffuse thickening of right breast, pt stated that she noticed the right breast mass for at least 2 years prior to her presentation. 03/13/2016 right breast biopsy confirmed invasive ductal carcinoma, ER 90%, KS (-) and HER2/ZHANE negative. She was started femara on , xgeva for bone mets and completed XRT to T10-L5 on 04/29/2016. She developed PE and DVT in August 2016 and was placed on Xarelto. Pt was seen about 4 days ago for acute visit in the office, she had c/o of progressive weakness, no appetite, and pain in the right breast that was more positional. She was examined with no acute changes in the breast noted, her UA at that time was negative, she was ordered appetite stimulant marinol. Pt was given instructions to see how she did over the weekend but she progressively worsened. When seen today pt is sitting up in bed, she has breakfast in front of her but states she has no appetite, denies nausea, she has a cough and feels SOB if she tries to be active, she denies any changes in bowel or bladder habits. Review of Systems All systems: negative Constitutional: Reports as per HPI Past Medical History Past Medical History: Cancer, Hypertension, Pulmonary Embolus (PE), Thyroid Disorder Additional Past Medical History / Comment(s): breast cancer with mets to bone. Radiation last summer History of Any Multi-Drug Resistant Organisms: None Reported Past Surgical History: Hysterectomy, Orthopedic Surgery Additional Past Surgical History / Comment(s): Pins in L hip secondary to fracture Past Anesthesia/Blood Transfusion Reactions: No Reported Reaction Past Psychological History: No Psychological Hx Reported Smoking Status: Never smoker Past Alcohol Use History: None Reported Past Drug Use History: None Reported - Past Family History Father Family Medical History: No Reported History Mother Family Medical History: CVA/TIA Brother(s) Family Medical History: Coronary Artery Disease (CAD) Sister(s) Family Medical History: CVA/TIA Daughter(s) Family Medical History: No Reported History Son(s) Family Medical History: No Reported History Medications and Allergies Home Medications Medication Instructions Recorded Confirmed Type DULoxetine HCL [Cymbalta] 30 mg PO AC-SUPPER 06/19/16 01/04/17 History HYDROcodone/APAP 10-325MG [Wheeler 1 tab PO QID PRN 06/19/16 01/04/17 History 10-325] Letrozole 2.5 mg PO AC-SUPPER 06/19/16 01/04/17 History Levothyroxine Sodium [Synthroid] 75 mcg PO SUMOWETHFR 06/19/16 01/04/17 History Losartan [Cozaar] 25 mg PO PC-BRKFST 06/19/16 01/04/17 History Potassium Chloride [K-Tab ER] 10 meq PO PC-BRKFST 06/19/16 01/04/17 History Levothyroxine Sodium [Synthroid] 37.5 mcg PO TUSA 01/04/17 01/04/17 History Rivaroxaban [Xarelto] 20 mg PO DAILY 01/04/17 01/04/17 History Allergies Allergy/AdvReac Type Severity Reaction Status Date / Time No Known Allergies Allergy Verified 01/04/17 10:08 Physical Exam Vitals: Vital Signs Temp Pulse Pulse Resp BP BP Pulse Ox 01/04/17 23:03 106 H 97 01/04/17 22:13 97.8 F 126 H 16 118/62 96 01/04/17 15:55 97.8 F 95 18 140/61 97 01/04/17 15:51 96 01/04/17 13:19 97.8 F 96 18 143/65 96 Intake and Output 01/04/17 01/05/17 01/05/17 22:59 06:59 14:59 Intake Total 590 100 Balance 590 100 Intake: Oral 590 100 Other: Voiding Method Toilet Toilet # Voids 1 2 - Constitutional General appearance: average body habitus, cooperative, no acute distress - EENT dry mucus membranes and lips Eyes: anicteric sclerae - Neck Neck: no lymphadenopathy - Respiratory Respiratory: bilateral: diminished, rales - Cardiovascular Heart sounds: normal: S1, S2 leg Peripheral Edema: bilateral: Trace - Gastrointestinal General gastrointestinal: no absent bowel sounds, no decreased bowel sounds, no distended, hepatomegaly, no hyperactive bowel sounds, normal bowel sounds, no organomegaly, no rigid, no scaphoid, soft, no splenomegaly, no tenderness, no umbilical hernia, no ventral hernia - Integumentary right breast skin thickening and redness are stable, the area is fixed to the chest wall, no ulceration, maceration or fungation. - Neurologic Neurologic: CNII-XII intact - Musculoskeletal Musculoskeletal: generalized weakness - Psychiatric Psychiatric: A&O x's 3, appropriate affect, intact judgment & insight Results CBC & Chem 7: 01/05/17 07:04 01/05/17 07:04 Labs: Abnormal Lab Results - Last 24 Hours (Table) 01/05/17 01/05/17 Range/Units 07:04 07:04 RBC 3.26 L (3.80-5.40) m/uL MCV 110.0 H (80.0-100.0) fL MCH 35.1 H (25.0-35.0) pg RDW 15.8 H (11.5-15.5) % Plt Count 114 L (150-450) k/uL Sodium 130 L (137-145) mmol/L Carbon Dioxide 19 L (22-30) mmol/L Calcium 7.9 L (8.4-10.2) mg/dL Total Bilirubin 2.1 H (0.2-1.3) mg/dL AST 140 H (14-36) U/L Alkaline Phosphatase 163 H (38-126) U/L Total Protein 5.0 L (6.3-8.2) g/dL Albumin 2.3 L (3.5-5.0) g/dL Comments: US reports reviewed Chest x-ray: report reviewed Abdominal x-ray: report reviewed Assessment and Plan (1) Metastatic breast cancer Narrative/Plan: Imaging has been ordered to evaluate pt metastatic disease. CT head requested due to pt being confused. Tumor markers have been ordered for eval as well. Will follow up in AM. Did speak to daughter for about 20min in as she came to office to discuss her mother's case, we will meet in the AM at the hospital. Status: Acute (2) ER+ (estrogen receptor positive status) Status: Acute (3) Breast cancer Status: Chronic (4) Pulmonary embolism Narrative/Plan: Pt will cont on Xarelto for anticoagulation Status: Chronic (5) Right leg DVT Narrative/Plan: Pt will cont on Xarelto for anticoagulation Status: Chronic Plan: Pt will continue femara for now Pt insurance will not pay for marinol for appetite stimulation and pt cannot take megace due to history of DVT/PE. We will give marinol while inpatient and try to convince pt insurance that it is a needed med.
[2017-01-05] MEDS: LETROZOLE 2.5 MG TAB PO SCH (18:10)
[2017-01-05] MEDS: DULoxetine HCL 30 MG CAPSULE.DR PO SCH (18:10)
[2017-01-05] MEDS: IOHEXOL 350 MG/ML 25 ML BOTTLE (ORAL USE) PO PRN ×2 (18:11→19:05)
--- NOTE | 2017-01-05 20:01 | CT ---
EXAMINATION TYPE: CT brain w con DATE OF EXAM: 01/05/2017 7:54 PM COMPARISON: 10/30/2016 HISTORY: R/O metastatic CA, Hx of breast CA. CT DLP: 1068 mGycm Automated exposure control for dose reduction was used. CONTRAST: CT scan of the head is performed with IV Contrast, patient injected with 80 mL of Visipaque 320. FINDINGS: There is cerebral cortical atrophy. There is patchy hypodensity in the periventricular white matter. There is no mass effect nor midline shift. There is no sign of intracranial hemorrhage. There is no p athologic enhancement. The calvarium is intact. IMPRESSION: Cerebral atrophy and chronic small vessel ischemia. No acute intracranial abnormality. No change. No evidence of metastatic disease.
--- NOTE | 2017-01-05 20:13 | CT ---
EXAMINATION TYPE: CT ChestAbdPelvis w con DATE OF EXAM: 01/05/2017 7:54 PM COMPARISON: NONE HISTORY: R/O metastatic CA, Hx of breast CA. CT DLP: 529.3 mGycm Automated exposure control for dose reduction was used. CONTRAST: CT scan of the chest, abdomen and pelvis is performed with Oral Contrast and with IV Contrast, patien t injected with 80 mL of Visipaque 320. FINDINGS: There are bilateral pleural effusions. There is patchy infiltrate and atelectasis at the lung bases. Heart is slightly enlarged. There are no hilar masses. I see no mediastinal adenopathy. There is moderate ascites fluid in the abdomen. The liver is small and heterogeneous. There is no spl enic mass. There is no sign of a pancreatic mass. There are multiple low-density areas within the jimmie er that measure up to 2.5 cm that could relate to metastatic disease. There is no adrenal mass. Kidneys show satisfactory contrast opacification. There is mild right-sided renal cortical atrophy. There is no hydronephrosis. There is no retroperitoneal adenopathy. Bladder distends smoothly. There is subcutaneous edema around the abdomen. There are numerous areas of sclerosis and lucency in the visualized cervical thoracic and lumbar spin e. There is also variable lucency in the bony pelvis. This is consistent with metastatic disease. The re are multiple thoracic compression fractures. I see no evidence of a bowel obstruction. IMPRESSION: Bilateral lower lobe pulmonary infiltrates and atelectasis. Heterogeneous liver with hypodense areas suspicious for metastatic disease. These measure up to 2.5 c m. Moderate ascites. Numerous osteolytic and osteosclerotic lesions in the skeleton consistent with metastatic disease. Mu ltiple thoracic pathologic fractures. This involves T12 T11 T10 T8 T5 T3 T2.There are also Apparent multiple healing pathologic rib fractures.
[2017-01-06] MEDS ORDERED: LEVOTHYROXINE 75 MCG TAB PO SCH (06:30)
[2017-01-06] MEDS: PANTOPRAZOLE 40 MG TABLET PO SCH (08:25)
[2017-01-06] MEDS: LOSARTAN 25 MG TAB PO SCH (08:26)
[2017-01-06] MEDS: RIVAROXABAN 10 MG TAB PO SCH (08:26)
[2017-01-06] MEDS: SPIRONOLACTONE 25 MG TAB PO SCH (08:27)
[2017-01-06] MEDS: FUROSEMIDE 10 MG/ML 2 ML VIAL IV SCH (08:27)
[2017-01-06 09:06] LABS: Anion Gap 8 mmol/L; Blood Urea Nitrogen 14 mg/dL (7-17); Calcium 8.1 mg/dL (8.4-10.2); Carbon Dioxide 22 mmol/L (22-30); Chloride 100 mmol/L (98-107); Glucose 95 mg/dL (74-99); Non-African American GFR(MDRD) 54 (>60 ml/min/1.73 sqM); Potassium 3.9 mmol/L (3.5-5.1); Sodium 130 mmol/L (137-145)
[2017-01-06] MEDS: IPRATROPIUM-ALBUTEROL 3 ML NEB INHALATION SCH ×4 (10:00→19:19)
[2017-01-06] MEDS: FUROSEMIDE 40 MG TAB PO SCH (12:38)
--- NOTE | 2017-01-06 13:39 | P.PN ---
Subjective 81-year-old female patient of Dr. Young is seen Dr. Workman primary oncologist for breast cancer with metastasis was also had history of pulmonary embolism history of hypertension and hypothyroidism who apparently has become debilitated tired fatigue weakness not been able to ambulate and walk. Patient had an appointment in my office last week the family had canceled because patient was very tired week not been able to walk and to come in the car with her family. Her urine was analyzed to be negative for UTI. Patient continued to experience sign and symptom of UTI but developed over the last 48 hours worsening symptom with worsening shortness of breath cough wheezes worsening symptom when she lays down having more PND and orthopnea also has been having incontinence with frequency and urgency with sign and symptom consistent with UTI as well. Patient ended up having more sites more fluid overload ended up coming to the emergency department at [facility] where was seen and evaluated found to have ascites with significant abnormal liver function test. Her ultrasound of the liver came back with sign and symptom of cirrhosis along with Ascites with no no clear evidence base of mass in the liver area that more sign and symptoms consistent with cirrhosis. 01/06: Urine culture has been finalized with no growth at 18 hours. Liver function tests remain elevated with total bilirubin 2.1, AST 140, alkaline phosphatase 163. CA 153 is greater than 500. CA-27-29 is pending. TSH is 1.54 urine osmolality 269 and urine sodium 63. Serum sodium is improving at 130. Patient is followed by nephrology and oncology. CAT scan of the brain shows cerebral atrophy and chronic small vessel ischemia. No acute intracranial abnormality. No evidence of metastatic disease. CAT scan of the chest abdomen and pelvis revealed bilateral lower lobe pulmonary infiltrates and atelectasis. Hypodense areas suspicious for metastatic disease in the liver measuring up to 2.5 cm. Moderate ascites. Numerous osteolytic and osteosclerotic lesions in the skeleton consistent with metastatic disease. Multiples thoracic pathologic fractures. Healing pathologic rib fractures. Patient denies any new complaints today. She does have a congested cough. Lasix and Aldactone have been increased. Objective - Vital Signs Vital signs: Vital Signs Temp 98.2 F 01/06/17 07:00 Pulse 106 H 01/06/17 07:00 Resp 18 01/06/17 07:00 BP 132/62 01/06/17 07:00 Pulse Ox 90 L 01/06/17 07:00 Intake & Output 01/05/17 01/06/17 01/06/17 18:59 06:59 18:59 Intake Total 970 Balance 970 Weight 51.256 kg Intake: Oral 970 Other: Voiding Method Toilet Toilet # Voids 1 1 # Bowel Movements 1 - Exam General appearance: no average body habitus, cooperative, no disheveled, mild distress, no morbidly obese, no acute distress, no obese, no severe distress, thin - EENT Eyes: no abnormal pupil, anicteric sclerae, no disc margins sharp, no edentulous , no EOMI, PERRLA, no fundus normal, no photophobia, no dentition normal, no poor dentition, no ptosis, no scleral icterus, normal appearance ENT: hard of hearing, no hearing grossly normal, no NA/AT, normal oropharynx, no other, no pharyngeal erythema, thrush, tonsillar exudates, no tonsillar swelling Ears: bilateral: normal, bulging - Neck Neck: lymphadenopathy, normal ROM, no other, no rigidity, no stridor, no thyromegaly Carotids: bilateral: upstroke normal, upstroke delayed Thyroid: bilateral: normal size, enlarged - Respiratory Respiratory: bilateral: CTA, diminished, dullness, rales - Cardiovascular Rhythm: regular Heart sounds: normal: S1, S2 Abnormal Heart Sounds: systolic murmur, S3 Gallop - Gastrointestinal Large ascites with mild hepatomegaly. General gastrointestinal: no absent bowel sounds, no decreased bowel sounds, distended, hepatomegaly, no hyperactive bowel sounds, normal bowel sounds, no organomegaly, no rigid, no scaphoid, soft, no splenomegaly, tenderness, no umbilical hernia, no ventral hernia - Integumentary Integumentary: no calor, no cellulitis, no cyanotic, no decreased turgor, no flushed, jaundiced, normal, no normal turgor, pale, rash, no ulcer - Neurologic Neurologic: CNII-XII intact - Musculoskeletal Musculoskeletal: no gait normal, generalized weakness, strength equal bilaterally, no right sided weakness, no left sided weakness - Psychiatric Psychiatric: A&O x's 3, appropriate affect - Labs CBC & Chem 7: 01/05/17 07:04 01/06/17 08:13 Labs: Abnormal Lab Results - Last 24 Hours (Table) 01/05/17 01/05/17 01/05/17 Range/Units 07:04 07:04 07:04 RBC 3.26 L (3.80-5.40) m/uL MCV 110.0 H (80.0-100.0) fL MCH 35.1 H (25.0-35.0) pg RDW 15.8 H (11.5-15.5) % Plt Count 114 L (150-450) k/uL Osmolality 269 L (280-301) mosm/kg CA 15-3 Antigen >500.0 H (<35.1) U/mL Assessment and Plan Plan: 1. Metabolic encephalopathy secondary to combination of hyponatremia, UTI. 2. Sepsis with UTI: Urine culture finalized with no growth, UA was positive patient be started on Rocephin 1 g daily for now. 3. 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 Continue Lasix and Aldactone 4. 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 Patient is on fluid restriction. 5. Breast cancer with metastasis: Consult with oncology appreciated. 6. History of pulmonary embolism and coagulation: Patient remain on Xarelto 20 mg a day. 7. Hypothyroidism: Continue on Synthroid 57.5 alternate with 75 mg every other day. 8. Hypertension: Remain on losartan 25 mg a day. 9. Depression recurrent: Has been on Cymbalta 30 mg a day. 10 mild wheezes and possible cardiac asthma specially with a situs patient will be on albuterol ipratropium nebulizer and diuretics for now. 11 GI prophylaxis: Patient will be on pantoprazole. 12 DVT prophylaxis: On Xarelto. 13. Severe protein calorie malnutrition with albumin of 2.3. Continue Ensure. Discharge plan: To be determined Impression and plan of care have been directed as dictated by the signing physician. Jimena Dykes nurse practitioner acting as scribe for signing physician. Time with Patient: Greater than 30
[2017-01-06] MEDS ORDERED: FUROSEMIDE 20 MG TAB PO SCH (15:00)
--- NOTE | 2017-01-06 16:42 | P.PN ---
Subjective Patient is seen in follow-up for hyponatremia. Sodium level was 128 on admission and is stable at 1:30 today. Patient is maintained on fluid restriction. However her oral intake remains quite poor. Denies vomiting. Does have loose bowel movements. She underwent CAT scan of the abdomen and pelvis with IV contrast on January 05 which was suggestive of metastasis to the liver and spine. Ascites was present. She has been started on diuretics. Vital signs are stable. General: The patient appeared well nourished and normally developed. HEENT: Head exam is unremarkable. Neck is without jugular venous distension. LUNGS: Lungs are clear to auscultation and percussion. Breath sounds decreased. HEART: Rate and Rhythm are regular. First and second heart sounds normal. No murmurs, rubs or gallops. ABDOMEN: Abdominal exam reveals normal bowel sounds. Non-tender and non- distended. No evidence of peritonitis. EXTREMITITES: No clubbing, cyanosis, or edema. Objective - Vital Signs Vital signs: Vital Signs Temp 98.5 F 01/06/17 15:00 Pulse 76 01/06/17 15:30 Resp 18 01/06/17 15:00 BP 132/60 01/06/17 15:00 Pulse Ox 92 L 01/06/17 15:00 Intake & Output 01/05/17 01/06/17 01/06/17 18:59 06:59 18:59 Intake Total 970 50 Balance 970 50 Weight 51.256 kg Intake: Intake, IV Titration 50 Amount cefTRIAXone 1,000 mg In 50 Sodium Chloride 0.9% 50 ml @ 100 mls/hr IVPB Q24HR [facility] Rx#:[id number] Oral 970 Other: Voiding Method Toilet Toilet # Voids 1 1 1 # Bowel Movements 1 - Labs CBC & Chem 7: 01/05/17 07:04 01/06/17 08:13 Labs: Abnormal Lab Results - Last 24 Hours (Table) 01/05/17 01/05/17 01/06/17 Range/Units 07:04 07:04 08:13 Sodium 130 L (137-145) mmol/L Calcium 8.1 L (8.4-10.2) mg/dL CA 15-3 Antigen >500.0 H (<35.1) U/mL CA 27-29 >9000.0 H (0.0-38.5) U/mL Assessment and Plan Plan: Assessment: #1. Hyponatremia. Hypervolemic in nature with ascites present. Also component of tea and toast diet as well as SIADH from malignancy. Sodium level 128 on admission and is stable at 130 this morning. Urine sodium 63 and urine osmolality 269. #2. Breast cancer with metastasis. Patient does not want chemotherapy. #3. Atrophic bilateral kidneys. #4. Ascites likely related to liver metastasis. #5. Metabolic acidosis. This is likely due to intermittent diarrhea she's been having. Improved. Plan: Maintain 1.5 L fluid restriction. Encourage oral solute intake. Add ensure with meals. Continue current regimen of diuretics - on Lasix as well as Aldactone. Repeat electrolytes in the morning. Daughter is unable to provide care and is looking into sending patient to ECF upon discharge.
[2017-01-06] MEDS: DULoxetine HCL 30 MG CAPSULE.DR PO SCH (17:22)
[2017-01-06] MEDS: LETROZOLE 2.5 MG TAB PO SCH (17:23)
--- NOTE | 2017-01-06 17:49 | P.PN ---
Subjective Principal diagnosis: UTI, AMS Pt seen today in follow up, she is feeling better today, she is thinking more clearly, she is still having congested cough with some difficulty expectorating , denies acute SOB or ANDREZ, no nausea, she did eat some breakfast, denies any changes in bowel or bladder habits. No new pain to report. Objective - Vital Signs Vital signs: Vital Signs Temp 98.5 F 01/06/17 15:00 Pulse 76 01/06/17 15:30 Resp 18 01/06/17 15:00 BP 132/60 01/06/17 15:00 Pulse Ox 92 L 01/06/17 15:00 Intake & Output 01/05/17 01/06/17 01/06/17 18:59 06:59 18:59 Intake Total 970 50 Balance 970 50 Weight 51.256 kg Intake: Intake, IV Titration 50 Amount cefTRIAXone 1,000 mg In 50 Sodium Chloride 0.9% 50 ml @ 100 mls/hr IVPB Q24HR [facility] Rx#:[id number] Oral 970 Other: Voiding Method Toilet Toilet # Voids 1 1 1 # Bowel Movements 1 - Constitutional General appearance: Present: average body habitus, cooperative, no acute distress - EENT Eyes: Present: anicteric sclerae ENT: Present: normal oropharynx - Respiratory Respiratory: bilateral: rales (scattered, improved ) - Cardiovascular Heart sounds: normal: S1, S2 - Gastrointestinal General gastrointestinal: Present: hepatomegaly, normal bowel sounds, soft - Integumentary Integumentary: Present: normal - Neurologic Neurologic: Present: CNII-XII intact - Musculoskeletal Musculoskeletal: Present: generalized weakness - Psychiatric Psychiatric: Present: A&O x's 3, appropriate affect, intact judgment & insight - Labs CBC & Chem 7: 01/05/17 07:04 01/06/17 08:13 Labs: Abnormal Lab Results - Last 24 Hours (Table) 01/05/17 01/05/17 01/06/17 Range/Units 07:04 07:04 08:13 Sodium 130 L (137-145) mmol/L Calcium 8.1 L (8.4-10.2) mg/dL CA 15-3 Antigen >500.0 H (<35.1) U/mL CA 27-29 >9000.0 H (0.0-38.5) U/mL - Imaging and Cardiology CT scan - abdomen: report reviewed CT scan - chest: report reviewed CT Scan - head: report reviewed CT scan - pelvis: report reviewed Assessment and Plan (1) Metastatic breast cancer Narrative/Plan: CT CAP and head reports were reviewed and discussed with pt and family. There are no images for direct comparison (CTA chest from Dec, some bone scans) but previous images are indicating metastatic disease is the same locations as discussed in the CT CAP. Pt right breast mass has actually slightly decreased in size on exam, a right axillary lymph node alos was difficult to palpate, which are improvements. Will ask Radiologist to take a look at all of the images to see if they can determine if this progressive malignancy. Pt will continue on Femara. Status: Acute (2) ER+ (estrogen receptor positive status) Status: Chronic (3) Breast cancer Status: Chronic (4) Pulmonary embolism Narrative/Plan: Pt will cont on Xarelto for anticoagulation Status: Chronic (5) Right leg DVT Narrative/Plan: Pt will cont on Xarelto for anticoagulation Status: Chronic Plan: Marinol was not started and pt has little better appetite, we will follow her intake and have Dietitian see her for suggestions of high calorie foods.
[2017-01-07] MEDS: LEVOTHYROXINE 75 MCG TAB PO SCH (06:12)
[2017-01-07] MEDS: IPRATROPIUM-ALBUTEROL 3 ML NEB INHALATION SCH ×4 (07:05→22:04)
[2017-01-07 08:42] LABS: Anisocytosis Slight; CH 34.9; CHCM 32.7; HCT 34.1 % (34.0-46.0); HDW 2.79; HGB 11.2 gm/dL (11.4-16.0); MCH 35.2 pg (25.0-35.0); MCHC 32.7 g/dL (31.0-37.0); MCV 107.5 fL (80.0-100.0); Macrocytosis Marked; RBC 3.17 m/uL (3.80-5.40); RDW 16.2 % (11.5-15.5); WBC 9.2 k/uL (3.8-10.6)
[2017-01-07] MEDS ORDERED: SPIRONOLACTONE 25 MG TAB PO SCH (09:00)
[2017-01-07 09:14] LABS: Anion Gap 7 mmol/L; Blood Urea Nitrogen 15 mg/dL (7-17); Calcium 8.1 mg/dL (8.4-10.2); Carbon Dioxide 22 mmol/L (22-30); Chloride 101 mmol/L (98-107); Glucose 95 mg/dL (74-99); Non-African American GFR(MDRD) 54 (>60 ml/min/1.73 sqM); Potassium 3.5 mmol/L (3.5-5.1); Sodium 130 mmol/L (137-145)
[2017-01-07] MEDS: PANTOPRAZOLE 40 MG TABLET PO SCH (09:37)
[2017-01-07] MEDS: RIVAROXABAN 10 MG TAB PO SCH (09:38)
[2017-01-07] MEDS: LOSARTAN 25 MG TAB PO SCH (09:38)
[2017-01-07] MEDS: FUROSEMIDE 40 MG TAB PO SCH ×2 (09:38→16:48)
[2017-01-07] MEDS ORDERED: SODIUM CHLORIDE TAB 1 GM TAB PO SCH (11:00)
--- NOTE | 2017-01-07 11:21 | P.PN ---
Subjective Patient is seen in follow-up for hyponatremia. Sodium level was 128 on admission and is stable at 130 today. Patient is maintained on fluid restriction as well as diuretics. However her oral intake remains quite poor. Denies vomiting. Does have loose bowel movements. She underwent CAT scan of the abdomen and pelvis with IV contrast on January 05 which was suggestive of metastasis to the liver and spine. Ascites was present. She is quite weak. Vital signs are stable. General: The patient appeared well nourished and normally developed. HEENT: Head exam is unremarkable. Neck is without jugular venous distension. LUNGS: Lungs are clear to auscultation and percussion. Breath sounds decreased. HEART: Rate and Rhythm are regular. First and second heart sounds normal. No murmurs, rubs or gallops. ABDOMEN: Abdominal exam reveals normal bowel sounds. Non-tender and non- distended. No evidence of peritonitis. EXTREMITITES: 1+ edema. Objective - Vital Signs Vital signs: Vital Signs Temp 97.9 F 01/07/17 07:00 Pulse 96 01/07/17 11:09 Resp 18 01/07/17 07:00 BP 119/67 01/07/17 07:00 Pulse Ox 90 L 01/07/17 07:05 Intake & Output 01/06/17 01/07/17 01/07/17 18:59 06:59 18:59 Intake Total 650 100 Output Total 700 Balance 650 -600 Intake: Intake, IV Titration 50 Amount cefTRIAXone 1,000 mg In 50 Sodium Chloride 0.9% 50 ml @ 100 mls/hr IVPB Q24HR [facility] Rx#:[id number] Oral 600 100 Output: Urine 700 Other: Voiding Method Toilet # Voids 1 1 - Labs CBC & Chem 7: 01/07/17 07:49 01/07/17 07:49 Labs: Abnormal Lab Results - Last 24 Hours (Table) 01/05/17 01/07/17 01/07/17 Range/Units 07:04 07:49 07:49 RBC 3.17 L (3.80-5.40) m/uL Hgb 11.2 L (11.4-16.0) gm/dL MCV 107.5 H (80.0-100.0) fL MCH 35.2 H (25.0-35.0) pg RDW 16.2 H (11.5-15.5) % Plt Count 81 L (150-450) k/uL Sodium 130 L (137-145) mmol/L Calcium 8.1 L (8.4-10.2) mg/dL CA 27-29 >9000.0 H (0.0-38.5) U/mL Assessment and Plan Plan: Assessment: #1. Hyponatremia. Hypervolemic in nature with ascites present. Also component of tea and toast diet as well as SIADH from malignancy. Sodium level 128 on admission and is stable at 130 this morning. Urine sodium 63 and urine osmolality 269. #2. Breast cancer with metastasis. Patient does not want chemotherapy. #3. Atrophic bilateral kidneys. #4. Ascites likely related to liver metastasis. #5. Metabolic acidosis. This is likely due to intermittent diarrhea she's been having. Improved. Plan: Maintain 1.5 L fluid restriction. Encourage oral solute intake. Add ensure with meals. Continue current regimen of diuretics - I will increase Lasix to 40 mg orally twice daily and Aldactone to 25 mg twice daily as well. Repeat electrolytes in the morning. Daughter is unable to provide care and is looking into sending patient to ECF upon discharge.
--- NOTE | 2017-01-07 13:42 | P.PN ---
Subjective 81-year-old female patient of Dr. Young is seen Dr. Workman primary oncologist for breast cancer with metastasis was also had history of pulmonary embolism history of hypertension and hypothyroidism who apparently has become debilitated tired fatigue weakness not been able to ambulate and walk. Patient had an appointment in my office last week the family had canceled because patient was very tired week not been able to walk and to come in the car with her family. Her urine was analyzed to be negative for UTI. Patient continued to experience sign and symptom of UTI but developed over the last 48 hours worsening symptom with worsening shortness of breath cough wheezes worsening symptom when she lays down having more PND and orthopnea also has been having incontinence with frequency and urgency with sign and symptom consistent with UTI as well. Patient ended up having more sites more fluid overload ended up coming to the emergency department at [facility] where was seen and evaluated found to have ascites with significant abnormal liver function test. Her ultrasound of the liver came back with sign and symptom of cirrhosis along with Ascites with no no clear evidence base of mass in the liver area that more sign and symptoms consistent with cirrhosis. 01/06: Urine culture has been finalized with no growth at 18 hours. Liver function tests remain elevated with total bilirubin 2.1, AST 140, alkaline phosphatase 163. CA 153 is greater than 500. CA-27-29 is pending. TSH is 1.54 urine osmolality 269 and urine sodium 63. Serum sodium is improving at 130. Patient is followed by nephrology and oncology. CAT scan of the brain shows cerebral atrophy and chronic small vessel ischemia. No acute intracranial abnormality. No evidence of metastatic disease. CAT scan of the chest abdomen and pelvis revealed bilateral lower lobe pulmonary infiltrates and atelectasis. Hypodense areas suspicious for metastatic disease in the liver measuring up to 2.5 cm. Moderate ascites. Numerous osteolytic and osteosclerotic lesions in the skeleton consistent with metastatic disease. Multiples thoracic pathologic fractures. Healing pathologic rib fractures. Patient denies any new complaints today. She does have a congested cough. Lasix and Aldactone have been increased. 01/07: Patient denies shortness of breath but complains of a rattly cough. She is on oral Lasix. She is continued on fluid restriction. Nephrology has increased her Lasix to 40 twice daily and Aldactone to 25 mg twice daily. Noted oncology plan to further evaluate imaging studies. Discussed prognosis with the patient's daughter and recommend comfort care and hospice care at this time. She is open to this and will discuss with social work. Objective - Vital Signs Vital signs: Vital Signs Temp 97.9 F 01/07/17 07:00 Pulse 100 01/07/17 07:14 Resp 18 01/07/17 07:00 BP 119/67 01/07/17 07:00 Pulse Ox 90 L 01/07/17 07:05 Intake & Output 01/06/17 01/07/17 01/07/17 18:59 06:59 18:59 Intake Total 650 100 Output Total 700 Balance 650 -600 Intake: Intake, IV Titration 50 Amount cefTRIAXone 1,000 mg In 50 Sodium Chloride 0.9% 50 ml @ 100 mls/hr IVPB Q24HR [facility] Rx#:[id number] Oral 600 100 Output: Urine 700 Other: Voiding Method Toilet # Voids 1 1 - Exam General appearance: no average body habitus, cooperative, no disheveled, mild distress, no morbidly obese, no acute distress, no obese, no severe distress, thin - EENT Eyes: no abnormal pupil, anicteric sclerae, no disc margins sharp, no edentulous , no EOMI, PERRLA, no fundus normal, no photophobia, no dentition normal, no poor dentition, no ptosis, no scleral icterus, normal appearance ENT: hard of hearing, no hearing grossly normal, no NA/AT, normal oropharynx, no other, no pharyngeal erythema, thrush, tonsillar exudates, no tonsillar swelling Ears: bilateral: normal, bulging - Neck Neck: lymphadenopathy, normal ROM, no other, no rigidity, no stridor, no thyromegaly Carotids: bilateral: upstroke normal, upstroke delayed Thyroid: bilateral: normal size, enlarged - Respiratory Respiratory: bilateral: CTA, diminished, dullness, rales - Cardiovascular Rhythm: regular Heart sounds: normal: S1, S2 Abnormal Heart Sounds: systolic murmur, S3 Gallop - Gastrointestinal Large ascites with mild hepatomegaly. General gastrointestinal: no absent bowel sounds, no decreased bowel sounds, distended, hepatomegaly, no hyperactive bowel sounds, normal bowel sounds, no organomegaly, no rigid, no scaphoid, soft, no splenomegaly, tenderness, no umbilical hernia, no ventral hernia - Integumentary Integumentary: no calor, no cellulitis, no cyanotic, no decreased turgor, no flushed, jaundiced, normal, no normal turgor, pale, rash, no ulcer - Neurologic Neurologic: CNII-XII intact - Musculoskeletal Musculoskeletal: no gait normal, generalized weakness, strength equal bilaterally, no right sided weakness, no left sided weakness - Psychiatric Psychiatric: A&O x's 3, appropriate affect - Labs CBC & Chem 7: 01/07/17 07:49 01/07/17 07:49 Labs: Abnormal Lab Results - Last 24 Hours (Table) 01/05/17 01/07/17 01/07/17 Range/Units 07:04 07:49 07:49 RBC 3.17 L (3.80-5.40) m/uL Hgb 11.2 L (11.4-16.0) gm/dL MCV 107.5 H (80.0-100.0) fL MCH 35.2 H (25.0-35.0) pg RDW 16.2 H (11.5-15.5) % Plt Count 81 L (150-450) k/uL Sodium 130 L (137-145) mmol/L Calcium 8.1 L (8.4-10.2) mg/dL CA 27-29 >9000.0 H (0.0-38.5) U/mL Assessment and Plan Plan: 1. Metabolic encephalopathy secondary to combination of hyponatremia, UTI. 2. Sepsis with UTI: Urine culture finalized with no growth, UA was positive patient be started on Rocephin 1 g daily for now. 3. 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 Continue Lasix and Aldactone 4. 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 Patient is on fluid restriction. 5. Breast cancer with metastasis: Consult with oncology appreciated. 6. History of pulmonary embolism and coagulation: Patient remain on Xarelto 20 mg a day. 7. Hypothyroidism: Continue on Synthroid 57.5 alternate with 75 mg every other day. 8. Hypertension: Remain on losartan 25 mg a day. 9. Depression recurrent: Has been on Cymbalta 30 mg a day. 10 mild wheezes and possible cardiac asthma specially with a situs patient will be on albuterol ipratropium nebulizer and diuretics for now. 11 GI prophylaxis: Patient will be on pantoprazole. 12 DVT prophylaxis: On Xarelto. 13. Severe protein calorie malnutrition with albumin of 2.3. Continue Ensure. Discharge plan: Comfort care/hospice care. Social work is following Impression and plan of care have been directed as dictated by the signing physician. Jimena Dykes nurse practitioner acting as scribe for signing physician. Time with Patient: Greater than 30
--- NOTE | 2017-01-07 13:53 | P.PN ---
Subjective Principal diagnosis: UTI, AMS Pt seen today in follow up, she is not noticing any improvements in her condition today, she is continues to feel weak, not able to do much on her own, she has no appetite, denies SOB at rest, no nausea, she is reporting diarrhea. Objective - Vital Signs Vital signs: Vital Signs Temp 97.9 F 01/07/17 07:00 Pulse 96 01/07/17 11:09 Resp 18 01/07/17 07:00 BP 119/67 01/07/17 07:00 Pulse Ox 90 L 01/07/17 07:05 Intake & Output 01/06/17 01/07/17 01/07/17 18:59 06:59 18:59 Intake Total 650 100 Output Total 700 Balance 650 -600 Intake: Intake, IV Titration 50 Amount cefTRIAXone 1,000 mg In 50 Sodium Chloride 0.9% 50 ml @ 100 mls/hr IVPB Q24HR [facility] Rx#:[id number] Oral 600 100 Output: Urine 700 Other: Voiding Method Toilet # Voids 1 1 - Constitutional General appearance: Present: cooperative, no acute distress, thin - Musculoskeletal Musculoskeletal: Present: generalized weakness - Psychiatric Psychiatric: Present: A&O x's 3, appropriate affect, intact judgment & insight - Labs CBC & Chem 7: 01/07/17 07:49 01/07/17 07:49 Labs: Abnormal Lab Results - Last 24 Hours (Table) 01/07/17 01/07/17 Range/Units 07:49 07:49 RBC 3.17 L (3.80-5.40) m/uL Hgb 11.2 L (11.4-16.0) gm/dL MCV 107.5 H (80.0-100.0) fL MCH 35.2 H (25.0-35.0) pg RDW 16.2 H (11.5-15.5) % Plt Count 81 L (150-450) k/uL Sodium 130 L (137-145) mmol/L Calcium 8.1 L (8.4-10.2) mg/dL Assessment and Plan (1) Metastatic breast cancer Status: Acute (2) ER+ (estrogen receptor positive status) Status: Chronic (3) Breast cancer Status: Chronic (4) Pulmonary embolism Status: Chronic (5) Right leg DVT Status: Chronic Plan: I had a long discussion with pt and daughter this AM. We were going to do another bone scan and compare those results with previous scan to see if there is truly breast cancer progression as the CT CAP report was reviewed and compared to previous imaging reports form the office with no significant change , maybe some slight changes. If there is disease progression then treatment would need to be changed. Pt was going to see Dr. Workman in just a week or so and talk with him then about options. The next discussion we had was concerns for ability of daughter to take care of pt in the home, she has no support. Social Work was contacted to meet with pt and daughter to discuss potential support at home or ECF or rehab if appropriate. As of this afternoon I was contacted and the pt and daughter have opted for hospice care. Scan cancelled. Proceed with plans for hospice care.
[2017-01-07] MEDS: HYDROcodone/APAP 10-325MG 1 EACH TAB PO PRN (14:43)
[2017-01-07 16:36] VITALS: RESP 16
[2017-01-07] MEDS: DULoxetine HCL 30 MG CAPSULE.DR PO SCH (16:48)
[2017-01-07] MEDS: SPIRONOLACTONE 25 MG TAB PO SCH (16:48)
[2017-01-07] MEDS: LETROZOLE 2.5 MG TAB PO SCH (16:59)
[2017-01-08] MEDS: LEVOTHYROXINE 75 MCG TAB PO SCH (06:14)
[2017-01-08] MEDS: IPRATROPIUM-ALBUTEROL 3 ML NEB INHALATION SCH ×2 (07:48→11:58)
[2017-01-08 07:52] VITALS: BP 127/73; TEMP 97.5
[2017-01-08 08:04] LABS: Anion Gap 8 mmol/L; Blood Urea Nitrogen 17 mg/dL (7-17); Calcium 8.4 mg/dL (8.4-10.2); Carbon Dioxide 22 mmol/L (22-30); Chloride 102 mmol/L (98-107); Glucose 97 mg/dL (74-99); Non-African American GFR(MDRD) 50 (>60 ml/min/1.73 sqM); Potassium 3.4 mmol/L (3.5-5.1); Sodium 132 mmol/L (137-145)
[2017-01-08] MEDS: LOSARTAN 25 MG TAB PO SCH (09:02)
[2017-01-08] MEDS: FUROSEMIDE 40 MG TAB PO SCH (09:02)
[2017-01-08] MEDS: RIVAROXABAN 10 MG TAB PO SCH (09:02)
[2017-01-08] MEDS: SPIRONOLACTONE 25 MG TAB PO SCH (09:03)
[2017-01-08] MEDS: PANTOPRAZOLE 40 MG TABLET PO SCH (09:03)
[2017-01-08] MEDS ORDERED: POTASSIUM CHLORIDE ER 20 MEQ TAB.ER PO STA (10:04)
--- NOTE | 2017-01-08 10:50 | P.PN ---
Subjective Patient is seen in follow-up for hyponatremia. Sodium level was 128 on admission and is improved to 132 today. Patient is maintained on fluid restriction as well as diuretics. However her oral intake remains quite poor. Denies vomiting. Diarrhea seems to have resolved. She underwent CAT scan of the abdomen and pelvis with IV contrast on January 05 which was suggestive of metastasis to the liver and spine. Ascites was present. She is quite weak. Vital signs are stable. General: The patient appeared well nourished and normally developed. HEENT: Head exam is unremarkable. Neck is without jugular venous distension. LUNGS: Lungs are clear to auscultation and percussion. Breath sounds decreased. HEART: Rate and Rhythm are regular. First and second heart sounds normal. No murmurs, rubs or gallops. ABDOMEN: Abdominal exam reveals normal bowel sounds. Non-tender and non- distended. No evidence of peritonitis. EXTREMITITES: 1+ edema. Objective - Vital Signs Vital signs: Vital Signs Temp 97.5 F L 01/08/17 07:00 Pulse 104 H 01/08/17 07:00 Resp 16 01/08/17 07:00 BP 127/73 01/08/17 07:00 Pulse Ox 93 L 01/08/17 07:00 Intake & Output 01/07/17 01/08/17 01/08/17 18:59 06:59 18:59 Intake Total 805 Output Total 100 400 Balance 705 -400 Intake: Oral 805 Output: Urine 100 400 Other: Voiding Method Toilet Toilet - Labs CBC & Chem 7: 01/07/17 07:49 01/08/17 07:25 Labs: Abnormal Lab Results - Last 24 Hours (Table) 01/08/17 Range/Units 07:25 Sodium 132 L (137-145) mmol/L Potassium 3.4 L (3.5-5.1) mmol/L Creatinine 1.05 H (0.52-1.04) mg/dL Assessment and Plan Plan: Assessment: #1. Hyponatremia. Hypervolemic in nature with ascites present. Also component of tea and toast diet as well as SIADH from malignancy. Sodium level 128 on admission and is 132 this morning. Urine sodium 63 and urine osmolality 269. #2. Breast cancer with metastasis. Patient does not want chemotherapy. #3. Atrophic bilateral kidneys. #4. Ascites likely related to liver metastasis. #5. Metabolic acidosis. This is likely due to intermittent diarrhea she's been having. Improved. #6. Hypokalemia secondary to diuretics and poor nutritional intake. Rule out magnesium deficiency. Plan: Maintain 1.5 L fluid restriction. Encourage oral solute intake. Add ensure with meals. Continue Lasix 40 mg orally twice daily and Aldactone 25 mg twice daily. Replace potassium. 40 mEq today. Repeat electrolytes in the morning. Check magnesium level. Daughter is unable to provide care and is looking into sending patient to ECF upon discharge. Hospice also a consideration.
--- NOTE | 2017-01-08 14:19 | P.DS ---
Providers Date of admission: 01/04/17 12:33 Expected date of discharge: 01/08/17 Attending physician: Rose Wall Consults: 01/04/17 14:34 Consult Physician Routine Consulting Provider: Fe Morley Consult Reason/Comments: hyponatremia Do you want consulting provider notified?: Yes [facility] Course: 81-year-old female patient of Dr. Young is seen Dr. Workman primary oncologist for breast cancer with metastasis was also had history of pulmonary embolism history of hypertension and hypothyroidism who apparently has become debilitated tired fatigue weakness not been able to ambulate and walk. Patient had an appointment in my office last week the family had canceled because patient was very tired week not been able to walk and to come in the car with her family. Her urine was analyzed to be negative for UTI. Patient continued to experience sign and symptom of UTI but developed over the last 48 hours worsening symptom with worsening shortness of breath cough wheezes worsening symptom when she lays down having more PND and orthopnea also has been having incontinence with frequency and urgency with sign and symptom consistent with UTI as well. Patient ended up having more sites more fluid overload ended up coming to the emergency department at [facility] where was seen and evaluated found to have ascites with significant abnormal liver function test. Her ultrasound of the liver came back with sign and symptom of cirrhosis along with Ascites with no no clear evidence base of mass in the liver area that more sign and symptoms consistent with cirrhosis. 01/06: Urine culture has been finalized with no growth at 18 hours. Liver function tests remain elevated with total bilirubin 2.1, AST 140, alkaline phosphatase 163. CA 153 is greater than 500. CA-27-29 is pending. TSH is 1.54 urine osmolality 269 and urine sodium 63. Serum sodium is improving at 130. Patient is followed by nephrology and oncology. CAT scan of the brain shows cerebral atrophy and chronic small vessel ischemia. No acute intracranial abnormality. No evidence of metastatic disease. CAT scan of the chest abdomen and pelvis revealed bilateral lower lobe pulmonary infiltrates and atelectasis. Hypodense areas suspicious for metastatic disease in the liver measuring up to 2.5 cm. Moderate ascites. Numerous osteolytic and osteosclerotic lesions in the skeleton consistent with metastatic disease. Multiples thoracic pathologic fractures. Healing pathologic rib fractures. Patient denies any new complaints today. She does have a congested cough. Lasix and Aldactone have been increased. 01/07: Patient denies shortness of breath but complains of a rattly cough. She is on oral Lasix. She is continued on fluid restriction. Nephrology has increased her Lasix to 40 twice daily and Aldactone to 25 mg twice daily. Noted oncology plan to further evaluate imaging studies. Discussed prognosis with the patient's daughter and recommend comfort care and hospice care at this time. She is open to this and will discuss with social work. 01/08: Family has had an informational meeting with [facility] with plan for patient to be discharged to the [facility] today in stable condition. Discharge diagnoses: 1. Metabolic encephalopathy secondary to combination of hyponatremia, UTI. 2. Sepsis with UTI: Urine culture finalized with no growth 3. 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 4. 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 5. Breast cancer with metastasis 6. History of pulmonary embolism and coagulation 7. Hypothyroidism 8. Hypertension 9. Depression recurrent 10. Acute on chronic systolic heart failure secondary to liver congestion 11. Severe protein calorie malnutrition with albumin of 2.3. re. Discharge plan: [facility] Impression and plan of care have been directed as dictated by the signing physician. Jimena Dykes nurse practitioner acting as scribe for signing physician. Patient Condition at Discharge: Undetermined Plan - Discharge Summary New Discharge Prescriptions: Atropine Ophth Soln 1% 5Ml [Isopto Atropine 1% 5Ml] 2 drops PO Q4HR PRN #1 bottle PRN Reason: Secretions Furosemide [Lasix] 40 mg PO BID@0900,1600 #60 tab HYDROcodone/APAP 10-325MG [[place] 10-325] 1 tab PO QID PRN #100 tab PRN Reason: Pain LORazepam ORAL CONC [Ativan Intensol] 2 mg PO Q4H PRN #30 ml PRN Reason: Anxiety MORPHINE ORAL SOLN 20mg/mL [Roxanol Oral Soln Conc 20MG/ML] 5 mg PO Q4H PRN #30 ml PRN Reason: Pain Spironolactone [Aldactone] 25 mg PO BID@0900,1600 #60 tab Discharge Medication List DULoxetine HCL [Cymbalta] 30 mg PO AC-SUPPER 06/19/16 [History] Levothyroxine Sodium [Synthroid] 75 mcg PO SUMOWETHFR 06/19/16 [History] Losartan [Cozaar] 25 mg PO PC-BRKFST 06/19/16 [History] Potassium Chloride [K-Tab ER] 10 meq PO PC-BRKFST 06/19/16 [History] Levothyroxine Sodium [Synthroid] 37.5 mcg PO TUSA 01/04/17 [History] Rivaroxaban [Xarelto] 20 mg PO DAILY 01/04/17 [History] Atropine Ophth Soln 1% 5Ml [Isopto Atropine 1% 5Ml] 2 drops PO Q4HR PRN #1 bottle 01/08/17 [Rx] Furosemide [Lasix] 40 mg PO BID@0900,1600 #60 tab 01/08/17 [Rx] HYDROcodone/APAP 10-325MG [[place] 10-325] 1 tab PO QID PRN #100 tab 01/08/17 [Rx] Ipratropium-Albuterol Nebulize [Duoneb 0.5 mg-3 mg/3 ml Soln] 3 ml INHALATION RT -QID ampul.neb 01/08/17 [Rx] LORazepam ORAL CONC [Ativan Intensol] 2 mg PO Q4H PRN #30 ml 01/08/17 [Rx] MORPHINE ORAL SOLN 20mg/mL [Roxanol Oral Soln Conc 20MG/ML] 5 mg PO Q4H PRN #30 ml 01/08/17 [Rx] Spironolactone [Aldactone] 25 mg PO BID@0900,1600 #60 tab 01/08/17 [Rx] Follow up Appointment(s)/Referral(s): Jacob Young MD [Primary Care Provider] - As Needed Discharge Disposition: [facility] TO [facility]
[2017-01-08] MEDS: HYDROcodone/APAP 10-325MG 1 EACH TAB PO PRN (15:45)
[2017-01-08 16:28] VITALS: PULSE 104
== END 2017-01-08 16:20 | disposition hospice, inpatient (51) | DRG 871 ==
LOC: EC 08:01 → 5ONC 12:33
PROVIDERS: ADMIT Internal Medicine; ATTEND Internal Medicine
DX: A41.9 Sepsis, unspecified organism (principal); E43 Unspecified severe protein-calorie malnutrition; G93.41 Metabolic encephalopathy; I50.23 Acute on chronic systolic (congestive) heart failure; C78.7 Secondary malignant neoplasm of liver and intrahepatic bile duct; E22.2 Syndrome of inappropriate secretion of antidiuretic hormone; C79.51 Secondary malignant neoplasm of bone; R18.8 Other ascites; I11.0 Hypertensive heart disease with heart failure; E87.2 Acidosis; J98.11 Atelectasis; M84.48XA Pathological fracture, other site, initial encounter for fracture; N39.0 Urinary tract infection, site not specified; C50.919 Malignant neoplasm of unspecified site of unspecified female breast; E86.0 Dehydration; E03.9 Hypothyroidism, unspecified; E87.6 Hypokalemia; F32.9 Major depressive disorder, single episode, unspecified; K74.60 Unspecified cirrhosis of liver; K76.1 Chronic passive congestion of liver; M81.0 Age-related osteoporosis without current pathological fracture; N26.1 Atrophy of kidney (terminal); T50.2X5A Adverse effect of carbonic-anhydrase inhibitors, benzothiadiazides and other diuretics, initial encounter; Z17.0 Estrogen receptor positive status [ER+]; Z79.01 Long term (current) use of anticoagulants; Z79.811 Long term (current) use of aromatase inhibitors; Z79.899 Other long term (current) drug therapy; Z82.49 Family history of ischemic heart disease and other diseases of the circulatory system; Z86.711 Personal history of pulmonary embolism; Z86.718 Personal history of other venous thrombosis and embolism; Z92.3 Personal history of irradiation
CPT/HCPCS: 36415; 70460; 71020; 71260; 74000; 74177; 76705; 76770; 80048; 80053; 81001; 82550; 82553; 83690; 83735; 83930; 83935; 84100; 84300; 84443; 84484; 85025; 85027; 85610; 85730; 86300; 87086; 93005; 94640